=== PATIENT | female | born 1950 | race Caucasian/White ===

== ENCOUNTER → 2020-04-16 09:16 | Outpatient (BNVA) | payer OTHER, SELFPAY | PROVIDERS: PCP Internal Medicine; Visit Provider Hospitalist ==

== ENCOUNTER 2020-05-04 15:22 | Outpatient (REF) | payer OTHER, SELFPAY ==
[2020-05-04 15:57] LABS: MANUAL DIFF FLAG NO
[2020-05-04 16:04] LABS: Basophils Absolute Auto 0.1 X10*3/uL (0.0-0.2); Basophils Percent Auto 0.9 % (0-2); Eosinophils Absolute Auto 0.1 X10*3/uL (0.0-0.4); Eosinophils Percent Auto 1.6 % (0-4); Hemoglobin 14.1 g/dl (12.0-16.0); Imm Gran Abs Auto 0.02 X10*3/uL (0.00-0.03); Imm Gran Pct Auto 0.3 % (0.0-0.4); Lymphocytes Absolute Auto 1.7 X10*3/uL (1.2-4.9); Lymphocytes Percent Auto 29.5 % (20-40); Mean Corpuscular HGB Conc 32.8 g/dl (31.0-35.0); Mean Corpuscular Hemoglobin 29.9 pg (27.0-33.0); Mean Corpuscular Volume 91.1 fL (80-98); Mean Platelet Volume 9.4 fL (9.4-12.3); Monocytes Absolute Auto 0.4 X10*3/uL (0.1-1.2); Monocytes Percent Auto 7.1 % (2-11); Neutrophils Absolute Auto 3.5 X10*3/uL (2.0-8.3); Neutrophils Percent Auto 60.6 % (45-73); Platelet Count 266 X10*3/uL (160-400); Red Blood Count 4.72 X10*6/uL (4.20-5.50); White Blood Count 5.8 X10*3/uL (4.8-10.8)
[2020-05-04 16:19] LABS: Anion Gap 11 (12-20); Blood Urea Nitrogen 13 mg/dL (9-16); Calcium 9.4 mg/dL (8.4-10.2); Carbon Dioxide 31 mmol/L (22-29); Chloride 105 mmol/L (96-108); Estimated Glomerular Filt Rate > 60; Glucose Random 94 mg/dL (60-115); Potassium 4.5 mmol/L (3.3-5.1); Sodium 142 mmol/L (135-145)
[2020-05-04 16:30] LABS: D Dimer < 200 NG/ML
[2020-05-04 16:54] LABS: Erythrocyte Sedimentation Rate 7 MM/HR (0-20)
[2020-05-09 11:21] LABS: Angiotensin Converting Enzyme 40 U/L (9-67)
== END 2020-05-04 15:23 | disposition home or self-care (01) ==
LOC: HO.RESP 15:22
PROVIDERS: PCP Internal Medicine; Visit Provider Hospitalist
DX: D86.9 Sarcoidosis, unspecified (principal); R06.00 Dyspnea, unspecified; R91.8 Other nonspecific abnormal finding of lung field; I27.20 Pulmonary hypertension, unspecified; R00.0 Tachycardia, unspecified
CPT/HCPCS: 36415; 80048; 82164; 85025; 85379; 85652

== ENCOUNTER → 2020-06-21 15:06 | Outpatient (REF) | payer OTHER, SELFPAY ==
--- NOTE | ~2020-06-21 | CT_ITS ---
EXAMINATION: CT CHEST WITHOUT CONTRAST CLINICAL INFORMATION: Abnormal findings of lungs. COMPARISON: None TECHNIQUE: Multidetector volumetric CT imaging of the chest was done. Axial MIP volume rendering provided. Sagittal and coronal reformatted images were obtained. This CT examination was performed using dose optimization techniques as appropriate, variously including the following: *Automated exposure control *Adjustment of mA and/or kV according to patient size (this includes techniques or standardized protocols for targeted exams where dose is matched to indication/reason for exam; i.e. 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 LUNGS: The lungs are well inflated with bilateral apical parenchymal scarring and apical pleural thickening. The right right upper lobe parenchymal thickening appears spiculated. It measures 3.1 x 0.7 cm and has radiating fibers to the adjacent pleura. The left apical parenchymal thickening extends to the left lateral pleura. There are a few ill-defined patchy densities seen in the right upper lobe. Focal right upper major fissure thickening is seen measuring 0.9 x 0.3 cm on axial image 196/7, there is a 4 mm calcified nodule right upper lobe axial image 257/7, 2 mm partially calcified nodule in left upper lobe axial image 309/7, 5 mm nodule in the lingula with mild retraction of left major fissure axial image 306/7, 2 mm nodule right lower lobe axial image 282/7, two 1 mm punctate calcifications adjacent to the major fissure image 275/7, 2 mm nodule right middle lobe axial image 336/7. Tiny calcified nodules are seen in the lingula. There is dense band-like atelectasis in the lingula and right lower lobe. MEDIASTINUM: There is a 1 cm pretracheal lymph node. The heart size is normal. There is atherosclerotic calcification of thoracic aorta without aneurysmal dilatation. No pericardial effusion seen. Central trachea and the bronchi are widely patent. PLEURA: There is no pleural effusion. No pleural mass or thickening. AXILLA: No lymphadenopathy. UPPER ABDOMEN: Visualized liver, spleen, pancreas, and bilateral adrenal glands are unremarkable. OSSEOUS STRUCTURES: No lytic or sclerotic process seen. CT/CT chest wo con IMPRESSION: There are no previous CT or chest x-ray available for comparison. Thick bilateral apical scarring, greater on the right than left. The right apical scarring appears spiculated extending to the pleural surface in all directions. In addition, there are small scattered calcified and noncalcified pulmonary nodules. Recommend follow-up in 3-6 months to establish stability. There is no acute pneumonic consolidation. No abnormal mediastinal lymph nodes.
--- NOTE | 2020-06-21 15:09 | CA_ITS ---
Transthoracic Echocardiogram Patient (Last, First, Middle): Jocelyne Leija, Gender: Female Date of : 1950 Age: 70 Procedure Date: 06/21/2020 Procedure Type: Transthoracic Echocardiogram Location: OP Height: 167.64 cm Weight: 63.5 kg BSA: 1.72 m2 Heart Rate: bpm BP: 130 / 78 mmHg Inspector Salvage: Referring MD: Diego Remy MD Spraying Machine Operator: Cosme Vyas MD Symptoms: I27.20 - Pulmonary hypertension, unspecified Study Quality: Technically Difficult ECG Rhythm: Sinus Conclusions: - 1. Normal LV systolic function with impaired relaxation filling pattern 2. Mild mitral regurgitation 3. Normal RV systolic pressure 4. No pericardial effusion Findings Left Ventricle Normal left ventricular size, thickness, and systolic function. The visually estimated ejection fraction is between 60-65%. Regional wall motion abnormalities can not be excluded due to suboptimal endocardial definition. Spectral Doppler is indicative of an impaired relaxation filling pattern. E/E prime ratio is <8, consistent with normal filling pressures. Right Ventricle The right ventricle was not well visualized. There is normal right ventricular systolic function. Atria The left atrium was not well visualized. Interatrial shunt cannot be excluded. The right atrium was not well visualized. Aortic Valve The aortic valve structure and function is likely normal. There is no aortic valve stenosis. There is no aortic valve regurgitation. Mitral Valve Likely normal mitral valve structure and function. There is mild mitral valve regurgitation. There is no mitral valve stenosis. Pulmonic Valve The pulmonic valve was not well visualized. Tricuspid Valve The tricuspid valve was not well visualized. There is trace tricuspid valve regurgitation. The right ventricular systolic pressure is normal. There is no evidence of pulmonary hypertension. Great Vessels All visible segments of the aorta are normal in size. The pulmonary artery was not well visualized. Venous The inferior vena cava is normal in size and collapses greater than 50% with inspiration. Pericardium/Pleural There is no evidence of pericardial effusion. Prior Study Comparison No prior study available for comparison. Measurements 2D Linear Measurements IVSd: 0.95 0.6-0.9/0.6-1.0 cm LVIDd: 4.10 3.9-5.3/4.2-5.9 cm LVIDd Index: 2.38 2.4-3.2/2.2-3.1 cm/m2 LVIDs: 2.56 2.0-3.6 cm LVPWd: 0.93 0.7-1.1 cm Ao Root: 2.80 2.1-3.5 cm LA Diam: 3.00 2.7-3.8/3.0-4.0 cm LAIDs Index: 1.74 1.5-2.3 cm/m2 LV Mass: 151.28 67-162/88-224 g LV Mass Index: 87.95 43-95/49-115 g/m2 LVOT Diam: 2.00 3.0+(-)1.3 cm Mitral Valve MV Pk E: 0.67 MV PK A: 0.97 MV Decel Time: 140.00 E/A: 0.70 E'Lateral: 7.06 E'Medial: 5.61 E/E' Med: 12.00 E/E' Lat: 9.50 PHT: 41.00 MVA PHT: 5.37 Decel [place]: 4.82 Aortic Valve AoV Pk Marcio: 0.93 AoV Mn Marcio: 0.55 AoV VTI: 0.21 AoV Pk Grad: 3.00 Aov Mn Grad: 2.00 TOMY Cont.VTI: 2.57 LVOT LVOT Pk Marcio: 0.81 LVOT Mn Marcio: 0.56 LVOT VTI: 0.17 LVOT Pk Grad: 3.00 LVOT Mn Grad: 1.00 LVOT Diam: 2.00 LVOT Area: 3.14 Diastolic Function MV Pk E: 0.67 MV Pk A: 0.97 E/A: 0.70 E'Medial: 5.61 E/E' Med: 12.00 E' Laterial: 7.06 E/E' Lat: 9.50 Tricuspid Valve TR Pk Marcio: 2.27 TR Pk Grad: 21.00 RA Press: 3.00 RVSP: 24.00 Great Vessels Aorta Ao Root-2D: 2.80 2.0-3.7 cm Ao Asc: 2.80 2.1-3.4 cm Pulmonary Valve PV Pk Marcio: 0.90 Peak PV Grad: 3.00 Updated in Other Vendor System with Status of Final Cosme Vyas MD electronically signed on 06/21/2020 4:17:45 PM with status of Final
== END ==
LOC: HO.CARD 15:06
PROVIDERS: PCP Internal Medicine; Visit Provider Hospitalist
DX: R91.8 Other nonspecific abnormal finding of lung field (principal); R06.00 Dyspnea, unspecified; I27.20 Pulmonary hypertension, unspecified; R00.0 Tachycardia, unspecified; D86.9 Sarcoidosis, unspecified
CPT/HCPCS: 71250; 93306

== ENCOUNTER → 2020-06-24 10:39 | Outpatient (BNVA) | payer OTHER, SELFPAY | PROVIDERS: PCP Internal Medicine; Visit Provider Hospitalist | DX: D86.9 Sarcoidosis, unspecified (principal); R91.8 Other nonspecific abnormal finding of lung field; R06.00 Dyspnea, unspecified; R00.0 Tachycardia, unspecified; J44.9 Chronic obstructive pulmonary disease, unspecified ==

== ENCOUNTER → 2021-02-01 15:32 | Outpatient (BNVA) | payer MEDICARE, SELFPAY | PROVIDERS: PCP Internal Medicine; Visit Provider Hospitalist | DX: D86.9 Sarcoidosis, unspecified (principal); I51.89 Other ill-defined heart diseases; R00.0 Tachycardia, unspecified; R06.00 Dyspnea, unspecified; R91.8 Other nonspecific abnormal finding of lung field; J44.9 Chronic obstructive pulmonary disease, unspecified | CPT/HCPCS: 99212 ==

== ENCOUNTER 2021-06-09 16:20 | Outpatient (REF) | payer MEDICARE, SELFPAY ==
--- NOTE | ~2021-06-09 | CT_ITS ---
EXAMINATION: CT CHEST WITHOUT CONTRAST CLINICAL INFORMATION: Other nonspecific abnormal finding of lung field COMPARISON: Previous chest CT most recent May 2020 TECHNIQUE: Multidetector volumetric CT imaging of the chest was done. Axial MIP volume rendering provided. Sagittal and coronal reformatted images were obtained. This CT examination was performed using dose optimization techniques as appropriate, variously including the following: *Automated exposure control *Adjustment of mA and/or kV according to patient size (this includes techniques or standardized protocols for targeted exams where dose is matched to indication/reason for exam; i.e. 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 There is volume loss to the right upper lobe. There are parenchymal opacities and traction bronchiectasis seen in both upper lobes, right greater than left, that are stable. There are smaller bilateral pulmonary nodules that are stable. There is focal atelectasis and bronchiectasis and some consolidation in the inferior segment of the lingula that is stable. MEDIASTINUM: There is a low-attenuation lesion in the right superior mediastinum that measures 1.2 x 2.8 cm in transverse and AP dimension and appears stable. May represent a cyst or necrotic lymph node. There are small calcified and noncalcified hilar and mediastinal lymph nodes. The heart does not appear enlarged. There is no pericardial effusion. The thoracic aorta is normal in caliber. PLEURA: There is no pleural effusion. No pleural mass or thickening. AXILLA: No lymphadenopathy. UPPER ABDOMEN: There is abnormal rotation of the left kidney with anterior orientation of the renal pelvis. OSSEOUS STRUCTURES: There are degenerative changes of the spine. There is a soft tissue fatty lesion in the right shoulder and adjacent bony remodeling of the right clavicle that appears unchanged from previous exam. There is a small 8 mm sclerotic lesion in the T8 vertebral body that is stable. CT/CT chest wo con IMPRESSION: Bilateral upper lobe pleural and parenchymal scarring and bilateral nodular opacities stable from May 2020 exam. Stable calcified and noncalcified mediastinal and hilar lymph nodes. Stable question 1.2 x 2.8 cm necrotic lymph node or cyst in the right superior mediastinum. Stable fatty lesion in the right shoulder and adjacent bony remodeling of the right scapula. Fleischner guidelines were followed.
== END 2021-06-09 16:21 | disposition home or self-care (01) ==
LOC: HO.CT 16:20
PROVIDERS: Visit Provider Hospitalist
DX: R91.8 Other nonspecific abnormal finding of lung field (principal)
CPT/HCPCS: 71250

== ENCOUNTER → 2021-08-01 15:37 | Outpatient (BNVA) | payer MEDICARE, SELFPAY | PROVIDERS: PCP Internal Medicine; Visit Provider Hospitalist | DX: R91.8 Other nonspecific abnormal finding of lung field (principal); J44.9 Chronic obstructive pulmonary disease, unspecified; I51.89 Other ill-defined heart diseases; R00.0 Tachycardia, unspecified; R06.00 Dyspnea, unspecified; D86.9 Sarcoidosis, unspecified | CPT/HCPCS: 99212 ==

== ENCOUNTER 2022-08-08 13:01 | Outpatient (REF) | payer MEDICARE, SELFPAY ==
--- NOTE | ~2022-08-08 | CT_ITS ---
EXAMINATION: CT CHEST WITHOUT CONTRAST CLINICAL INFORMATION: Pulmonary nodule COMPARISON: Previous chest CT scans from 2020 and 2021 TECHNIQUE: Multidetector volumetric CT imaging of the chest was done. Axial MIP volume rendering provided. Sagittal and coronal reformatted images were obtained. This CT examination was performed using dose optimization techniques as appropriate, variously including the following: *Automated exposure control *Adjustment of mA and/or kV according to patient size (this includes techniques or standardized protocols for targeted exams where dose is matched to indication/reason for exam; i.e. extremities or head) *Use of iterative reconstruction technique DLP: 108 mGy-cm FINDINGS: LUNGS: There is biapical pleural and parenchymal scarring. Nodular opacities in the bilateral upper lobes and associated bronchiectasis do not appear appreciably changed from previous exams. There is bilateral upper lobe volume loss, right greater than left. There are clustered calcifications in the superior segment of the right lower lobe that appear unchanged. There is an adjacent area of increased groundglass attenuation for example axial image 212 series 5 that is stable. There is a small peripheral or subpleural left lower lobe nodule adjacent to the fissure measuring 4 mm axial image 171 series 5 that is stable. There is focal atelectasis or consolidation in the insula that is stable.. No endobronchial or endotracheal lesion.. MEDIASTINUM: Low-attenuation lesion in the right paratracheal superior mediastinum measures 2.4 x 3.1 cm and is increasing compared to previous exam for example measuring 1.2 x 2.8 cm in 202. This may represent a cyst or necrotic lymph node. There are other mediastinal and bilateral hilar lymph nodes some of which are partially calcified. Largest lymph nodes are a upper normal-size precarinal lymph node measuring 9 mm in short axis and slightly enlarged subcarinal partially calcified lymph node measuring 1.4 cm in short axis. These do not appear appreciably changed. Normal heart size. No pericardial effusion. CORONARY ARTERY CALCIFICATION: None visualized on this study. PLEURA: There is no pleural effusion. No pleural mass or thickening. AXILLA: No lymphadenopathy. UPPER ABDOMEN: Abnormal rotation of the left kidney with anterior orientation of the renal pelvis. The left lobe of the liver is small. This is similar to previous exam. OSSEOUS STRUCTURES: Fatty lesion in the right scapula and adjacent soft tissues appears stable. Small sclerotic lesion in the T8 vertebral body is stable. Degenerative changes of the spine. CT/CT chest wo IV con IMPRESSION: Stable bilateral upper lobe nodular opacities and focal scarring and bronchiectasis. Other small pulmonary nodules are stable. Interval increase in low-attenuation lesion in the right. Tracheal region. This may represent a cyst or necrotic lymph node. Otherwise bilateral mediastinal and hilar lymph nodes some of which are partially calcified are stable. Fleischner guidelines were followed.
== END 2022-08-08 13:02 | disposition home or self-care (01) ==
LOC: HO.CT 13:01
PROVIDERS: Visit Provider Hospitalist
DX: R91.8 Other nonspecific abnormal finding of lung field (principal)
CPT/HCPCS: 71250

== ENCOUNTER → 2022-08-09 09:48 | Outpatient (BNVA) | payer MEDICARE, SELFPAY | PROVIDERS: PCP Nurse Practitioner Primary Care; Visit Provider Hospitalist | DX: D86.9 Sarcoidosis, unspecified (principal); J44.9 Chronic obstructive pulmonary disease, unspecified; R91.8 Other nonspecific abnormal finding of lung field; R06.00 Dyspnea, unspecified; I51.89 Other ill-defined heart diseases | CPT/HCPCS: 99212 ==

== ENCOUNTER 2022-10-27 07:36 | Outpatient (REF) | payer MEDICARE, SELFPAY ==
--- NOTE | 2022-10-27 08:18 | PFT_ITS ---
FLOWS: 1. FEV1 105% of predicted at 2.59 L. 2. FVC 96% of predicted at 3.11 L. 3. FEV1 to FVC ratio of 0.83. 4. No bronchodilator response. LUNG VOLUMES: 1. Total lung capacity 84% of predicted at 4.50 L. 2. Residual volume 57% of predicted at 1.32 L. 3. Slow vital capacity 104% of predicted at 3.18 L. 4. Expiratory reserve volume 91% of predicted at 0.71 L. 5. Diffusion capacity is mildly decreased. IMPRESSION: No obstructive or restrictive ventilatory defect. No bronchodilator response. Isolated diffusion capacity defect suggest emphysema. Clinical correlation is advised. Trey Ramirez MD AP/MODL / [id number]
== END 2022-10-27 07:37 | disposition home or self-care (01) ==
LOC: HO.RESP 07:36
PROVIDERS: PCP Nurse Practitioner Primary Care; Visit Provider Hospitalist
DX: R06.00 Dyspnea, unspecified (principal)
CPT/HCPCS: 94010; 94727; 94729

== ENCOUNTER → 2022-10-27 08:18 | Outpatient (BNV) | payer MEDICARE, SELFPAY | PROVIDERS: PCP Nurse Practitioner Primary Care; Visit Provider Internal Medicine Pulmonary Disease | DX: D86.9 Sarcoidosis, unspecified (principal); R06.09 Other forms of dyspnea | CPT/HCPCS: 94060; 94727; 94729 ==

== ENCOUNTER 2023-01-26 14:12 | Outpatient (AMB) | payer MEDICARE, SELFPAY ==
[2023-01-26 14:13] VITALS: BP 130/68; PULSE 100; O2SAT 98
--- NOTE | 2023-01-26 14:13 | A.OFFVIS_ITS ---
Intake Vital Signs 01/26/23 14:13 Weight 145 lb 8.081 oz BP 130/68 Blood Pressure Location Rt brachial Position Sitting Pulse 100 Pulse Source Pulse Oximeter Pulse Oximetry (%) 98 Oxygen Delivery Method Room Air Intake Visit Reasons: dyspnea Allergies No Known Allergies Allergy (Verified 01/26/23 14:17) Medication List - Last Reconciled 01/26/23 by Asiya Bruno LPN albuterol sulfate 90 mcg/actuation 2 inhalations inhalation Q6H PRN 30 days budesonide-formoterol 160-4.5 mcg/actuation (Symbicort) 2 puffs inhalation BID 30 days levothyroxine 100 mcg PO DAILY metoprolol succinate ER 25 mg PO DAILY HPI HPI Comments History of Present Illness Details Patient is a 72 y/o woman with a history of sarcoidosis which is of biopsy-proven. She has been doing very well. Back in December 2017 she was exposed to significant out side exposures including grass clippings and believes that she was having worsening cough and shortness of breath. At that point was unclear if she had a reactivation of her sarcoidosis. His sarcoid level was normal. She did have a CT scan of the chest back in April 2017 demonstrating stable parenchymal changes with nodular densities and lymphadenopathy which have been stable. Granulomas which have been stable. She has not had to use her rescue inhaler or inhaled cortical steroids up to this point. She feels well without any significant cough or shortness of breath. We did review her last CT scan at this point the patient should get a repeat CT scan in the future needs to make sure that she has her she iced check for uveitis and also her blood work as breast to have make sure that he with kidney function and calcium levels are within normal limits. 05/13/2019 We need to repeat her Power level. Back in February of 2017 was slightly elevated. This was suggest sarcoid activity. Her CT scan however was relatively stable. She did have some slight increase in the nodular densities in the right upper lung zone. Otherwise no significant lymphadenopathy. 04/16/2020 the patient is here for pulmonary follow-up visit. Overall she is doing well. She has been developing some shortness of breath with activity. [id number] severity. Also having some nonproductive cough at times. We talked about considering maintenance inhaler to see if provides some relief of her symptoms. Her last CT scan of the chest was back in April 2019 demonstrating stable pulmonary nodules consistent with her sarcoidosis. Otherwise the patient is without any other complaints. 05/04/2020 the patient is here for pulmonary follow-up visit. Since we last spoke the patient continues to have shortness of breath. Moderate severity. She did try the Trelegy inhaler without any significant improvement actually caused her to have some tremulousness. Therefore she stopped it after several days. She did not see any improvement from a respiratory status. She denies any chest pains. She has been complaining of calf discomfort. In the office we did do a 6 minutes walk test and pulse ox went down to about 96% from 98% however, her heart rate increased up to 132. She had a Jose D score of 5/10. With her calf discomfort in her shortness of breath and tachycardia would not be unreasonable to check a D-dimer. Will also check her inflammatory markers on her Power level. The patient also has pulmonary nodules and therefore we should have a repeat CT scan of the chest to assess the pulmonary nodules to compared to her last 1 from April of 2019. Specially with her ongoing symptoms. In addition to that with the significant tachycardia an echocardiogram would also be reasonable. Specially with sarcoid history. 06/24/2020 The patient is here for a pulmonary visit. She is still complai shania of dyspnea on exertion. Her resp iratory therapy has been maximized while on the Trelegy inhaler. She did undergo a CT chest deomonstrating some sarcoid related airspace disease primarily in the upper lung zones. Her DDimer was negative which was reassuring. She did undergo an ECHO demonstrating impaired relaxation which is likely contributing to her dyspnea and tachicardia. At this point we will refer her to Cardiology to further assess. At this point I do not feel strongly that we need to evaluate for cardiac sarcoid, but should be in the differential. 02/01/2021 the patient is here for a pulmonary follow-up visit. The patient overall has been doing better. Still has some dyspnea on exertion mild in severity. She start the Trelegy she does not want to take additional medications at this time. She does have a rescue inhaler she can use as needed. 08/01/2021 the patient is here for a pulmonary follow-up visit. She continues to have some dyspnea on exertion. Mild in severity. Also recently she did undergo a cardiac evaluation for palpitations. She had an echocardiogram which is reassuring. She was started on metoprolol by her primary care doctor. No evidence of any further palpitations noted. Nose episodes of syncope or evidence of heart block. Explained to the patient that for cardiac sarcoid that will be more typical presentation. It is also reassuring that echocardiogram did not demonstrate any wall motion abnormalities. However, she understands that the best way to assess for cardiac sarcoid would be with a MRI of the heart or a cardiac PET scan. Therefore, will continue to monitor her symptoms. If they worsen then will be reasonable to further evaluate this. At this time that she did have a CT scan of the chest and is reassuring that her interstitial lung disease related to the sarcoidosis has not significantly changed. Will follow-up with a CT scan in a year's time at this time. 08/09/2022 the patient is here for pulmonary follow-up visit. She does complaint of increasing dyspnea on exertion. Even going up a Flight of stairs she needs to stop and rest. She is to be progressively getting worse. She was seen by Cardiology [place] she was started on metoprolol. Seems to be making the heart rate issue better. We did review her CT scan of the chest and does not appear to have any significant Changes from last year's. However, has not been officially read we have to wait for that report to make sure. will have the patient start Symbicort 1 puff a day to make sure does not interact with her cardiac issues. I am hopeful that this could help with his respiratory symptoms. In the meantime she will return in 3-4 months with PFTs to further evaluate her respiratory capacity. 01/26/2023 the patient is here for a pulmonary follow-up visit. Overall she is doing well. She has been using the Symbicort. She also has a rescue inhaler. She tends to use more the rescue inhaler. I did explain to her the Symbicort will work better for her. Denies any short significant shortness of breath and at rest. She does have some dyspnea on exertion mild in severity. Otherwise no other complaints. The patient did have pulmonary the here w right side of mediastinum adjacentn studies that we personally reviewed. No obstructive nor restrictive ventilatory defects. She does have mild diff usion impairment. Otherwise no significant findings. Her CT scan of the chest was last done back in July 2022 demonstrating stability of disease although she had 1 area on the right side of the trachea where there is a non specific opacity. Overall the patient is doing well will follow-up in 6 months if the patient develops any worsening symptoms prior to this she will call for an earlier assessment. [facility] Medical History (Updated 06/24/20 @ 11:09 by Diego Remy MD) Diastolic dysfunction Tachycardia Dyspnea Pulmonary nodules Sarcoidosis Asthma-COPD overlap syndrome Social History (Updated 02/01/21 @ 15:45 by [place]) Patient Tobacco Use Status: Former Tobacco user Tobacco use type: Cigarette Years Smoked: 15 years Review of Systems Const Denies night sweats ENT Denies change in voice, Denies lip swelling, Denies mouth pain, Reports nasal congestion, Reports nasal discharge and Denies tongue swelling Card Denies chest pain and Reports dyspnea on exertion Resp Reports cough and Reports dyspnea on exertion GI Denies abdominal pain Musc Denies no additional complaints Neuro Denies Neuro-related abnormal movements Psych Denies no additional complaints Bruno/Lymph Denies easy bleeding and Denies lymphadenopathy Aller/Immun Denies lip swelling and Denies tongue swelling Physical Exam Vital Signs: Last Vital Signs Pulse 100 01/26/23 14:13 BP 130/68 01/26/23 14:13 Pulse Ox 98 01/26/23 14:13 Oxygen Delivery Method Room Air 01/26/23 14:13 Const General: alert Neck Neck: Yes full ROM Chest Chest palpation & inspection: normal inspection of the chest Resp Effort & Inspection: normal respiratory effort Auscultation: diminished lung sounds Cardio Rate: regular rate Rhythm: regular rhythm Heart sounds: S1 normal heart sound present and S2 normal heart sound present GI Palpation (GI): Soft to palpation and nontender Auscultation: normal bowel sounds Skin General skin exam: rashes and/or lesions noted Assessment & Plan Assessment & Plan (1) Diastolic dysfunction: Code(s): I51.89 - Other ill-defined heart diseases (2) Dyspnea: Code(s): R06.00 - Dyspnea, unspecified Qualifiers: Dyspnea type: dyspnea on exertion Qualified Code(s): R06.00 - Dyspnea, unspecified (3) Pulmonary nodules: Code(s): R91.8 - Other nonspecific abnormal finding of lung field (4) Sarcoidosis: Code(s): D86.9 - Sarcoidosis, unspecified (5) Asthma-COPD overlap syndrome: Code(s): J44.9 - Chronic obstructive pulmonary disease, unspecified Plan short-acting beta agonist as needed conitnue Symbicort , monitor HR repeat CT chest 07/2023 F/U 3-4 months Medications: Refilled budesonide-formoterol 160-4.5 mcg/actuation (Symbicort) 2 puffs inhalation BID 30 days 10.2 grams 11RF J44.9 - Chronic obstructive pulmonary disease, unspecified Coding Level of Care Code Est Pt Level 4 (33948) Diagnoses Diastolic dysfunction I51.89 Dyspnea on exertion R06.00 Dyspnea type: dyspnea on exertion Pulmonary nodules R91.8 Sarcoidosis D86.9 Asthma-COPD overlap syndrome J44.9 Time Spent (min) 17
== END 2023-01-26 14:36 | disposition home or self-care (01) ==
PROVIDERS: PCP Nurse Practitioner Primary Care; Visit Provider Hospitalist
DX: I51.89 Other ill-defined heart diseases (principal); R06.00 Dyspnea, unspecified; R91.8 Other nonspecific abnormal finding of lung field; D86.9 Sarcoidosis, unspecified; J44.9 Chronic obstructive pulmonary disease, unspecified
CPT/HCPCS: 99214

== ENCOUNTER → 2023-01-26 14:12 | Outpatient (BNVA) | payer MEDICARE, SELFPAY | PROVIDERS: PCP Nurse Practitioner Primary Care; Visit Provider Hospitalist | DX: I51.89 Other ill-defined heart diseases (principal); J44.9 Chronic obstructive pulmonary disease, unspecified; R06.00 Dyspnea, unspecified; R91.8 Other nonspecific abnormal finding of lung field; D86.9 Sarcoidosis, unspecified | CPT/HCPCS: 99212 ==

== ENCOUNTER 2023-08-02 14:32 | Outpatient (AMB) | payer MEDICARE, SELFPAY ==
[2023-08-02 14:38] VITALS: PULSE 89; O2SAT 96; BMI 22.6
--- NOTE | 2023-08-02 14:38 | A.OFFVIS_ITS ---
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 She has been doing very well. Back in December 2017 she was exposed to significant out side exposures including grass clippings and believes that she was having worsening cough and shortness of breath. At that point was unclear if she had a reactivation of her sarcoidosis. His sarcoid level was normal. She did have a CT scan of the chest back in April 2017 demonstrating stable parenchymal changes with nodular densities and lymphadenopathy which have been stable. Granulomas which have been stable. She has not had to use her rescue inhaler or inhaled cortical steroids up to this point. She feels well without any significant cough or shortness of breath. We did review her last CT scan at this point the patient should get a repeat CT scan in the future needs to make sure that she has her she iced check for uveitis and also her blood work as breast to have make sure that he with kidney function and calcium levels are within normal limits. 08/09/2022 the patient is here for pulmonary follow-up visit. She does complaint of increasing dyspnea on exertion. Even going up a Flight of stairs she needs to stop and rest. She is to be progressively getting worse. She was seen by Cardiology [facility] she was started on metoprolol. Seems to be making the heart rate issue better. We did review her CT scan of the chest and does not appear to have any significant Changes from last year's. However, has not been officially read we have to wait for that report to make sure. will have the patient start Symbicort 1 puff a day to make sure does not interact with her cardiac issues. I am hopeful that this could help with his respiratory symptoms. In the meantime she will return in 3-4 months with PFTs to further evaluate her respiratory capacity. 01/26/2023 the patient is here for a pulmonary follow-up visit. Overall she is doing well. She has been using the Symbicort. She also has a rescue inhaler. She tends to use more the rescue inhaler. I did explain to her the Symbicort will work better for her. Denies any short significant shortness of breath and at rest. She does have some dyspnea on exertion mild in severity. Otherwise no other complaints. The patient did have pulmonary the here w right side of mediastinum adjacentn studies that we personally reviewed. No obstructive nor restrictive ventilatory defects. She does have mild diffusion impairment. Otherwise no significant findings. Her CT scan of the chest was last done back in July 2022 demonstrating stability of disease although she had 1 area on the right side of the trachea where there is a non specific opacity. Overall the patient is doing well will follow-up in 6 months if the patient develops any worsening symptoms prior to this she will call for an earlier assessment. 08/02/2023 the patient is here for a pulmonary follow-up visit. Overall she has doing about the same. Still having some dyspnea on exertion [id number] with activity. Explained to the patient likely multifactorial. We did go for a walking oximetry the patient did have an elevated heart rate. I did give her information about the online pulmonary rehabilitation that she can look at to start exercising more regularly. The patient also has inhalers that she can use as needed for worsening respiratory symptoms. She did have a CT scan of the chest back in 08/15/2022 which we personally reviewed demonstrating significant parenchymal disease nodular densities and lymphadenopathy. This is likely all related to the sarcoidosis. She is supposed repeat CT scan this time. In the meantime she also complains of significant daytime drowsiness. Her [place] score is elevated 12/24. She does have headaches in the morning and does have episodes of apnea. The patient will benefit from a home sleep study at this time. [facility] Medical History (Updated 08/02/23 @ 14:59 by Diego Reym MD) TAHIRA (obstructive sleep apnea) Diastolic dysfunction Tachycardia Dyspnea Pulmonary nodules Sarcoidosis Asthma-COPD overlap syndrome Social History (Updated 02/01/21 @ 15:45 by [place] [place]) Patient Tobacco Use Status: Former Tobacco user Tobacco use type: Cigarette Years Smoked: 15 years Review of Systems Const Denies night sweats ENT Denies change in voice, Denies lip swelling, Denies mouth pain, Reports nasal congestion, Reports nasal discharge and Denies tongue swelling Card Denies chest pain and Reports dyspnea on exertion Resp Reports cough and Reports dyspnea on exertion GI Denies abdominal pain Musc Denies no additional complaints Neuro Denies Neuro-related abnormal movements Psych Denies no additional complaints Bruno/Lymph Denies easy bleeding and Denies lymphadenopathy Aller/Immun Denies lip swelling and Denies tongue swelling Physical Exam Vital Signs: Last Vital Signs Pulse 89 08/02/23 14:38 Pulse Ox 96 08/02/23 14:38 Oxygen Delivery Method Room Air 08/02/23 14:38 BMI result Body Mass Index 22.6 Const General: alert Neck Neck: Yes full ROM Chest Chest palpation & inspection: normal inspection of the chest Resp Effort & Inspection: normal respiratory effort Auscultation: diminished lung sounds Cardio Rate: tachycardic Rhythm: regular rhythm Heart sounds: S1 normal heart sound present and S2 normal heart sound present GI Palpation (GI): Soft to palpation and nontender Auscultation: normal bowel sounds Skin General skin exam: rashes and/or lesions noted Assessment & Plan Assessment & Plan (1) Diastolic dysfunction: Code(s): I51.89 - Other ill-defined heart diseases Category: Medical (2) Dyspnea: Code(s): R06.00 - Dyspnea, unspecified Category: Medical Qualifiers: Dyspnea type: dyspnea on exertion Qualified Code(s): R06.00 - Dyspnea, unspecified (3) Pulmonary nodules: Code(s): R91.8 - Other nonspecific abnormal finding of lung field Category: Medical (4) Sarcoidosis: Code(s): D86.9 - Sarcoidosis, unspecified Category: Medical (5) Asthma-COPD overlap syndrome: Code(s): J44.9 - Chronic obstructive pulmonary disease, unspecified Category: Medical (6) TAHIRA (obstructive sleep apnea): Code(s): G47.33 - Obstructive sleep apnea (adult) (pediatric) Category: Medical Plan short-acting beta agonist as needed conitnue Symbicort , monitor HR repeat CT chest 07/2023 Home PSG F/U 3-4 months Orders: Orders RT home sleep study 08/02/23 G47.33 - Obstructive sleep apnea (adult) (pediatric) Coding Level of Care Code Est Pt Level 4 (48739) Diagnoses Diastolic dysfunction I51.89 Dyspnea on exertion R06.00 Dyspnea type: dyspnea on exertion Pulmonary nodules R91.8 Sarcoidosis D86.9 Asthma-COPD overlap syndrome J44.9 TAHIRA (obstructive sleep apnea) G47.33 Time Spent (min) 17
== END 2023-08-02 15:05 | disposition home or self-care (01) ==
PROVIDERS: PCP Nurse Practitioner Primary Care; Visit Provider Hospitalist
DX: I51.89 Other ill-defined heart diseases (principal); R06.00 Dyspnea, unspecified; R91.8 Other nonspecific abnormal finding of lung field; D86.9 Sarcoidosis, unspecified; J44.9 Chronic obstructive pulmonary disease, unspecified; G47.33 Obstructive sleep apnea (adult) (pediatric)
CPT/HCPCS: 99214

== ENCOUNTER → 2023-08-02 14:32 | Outpatient (BNVA) | payer MEDICARE, SELFPAY | PROVIDERS: PCP Nurse Practitioner Primary Care; Visit Provider Hospitalist | DX: J44.9 Chronic obstructive pulmonary disease, unspecified (principal); G47.33 Obstructive sleep apnea (adult) (pediatric); R06.00 Dyspnea, unspecified; R91.8 Other nonspecific abnormal finding of lung field; I51.89 Other ill-defined heart diseases; D86.9 Sarcoidosis, unspecified | CPT/HCPCS: 99212 ==

== ENCOUNTER → 2023-09-10 15:03 | Outpatient (REF) | payer MEDICARE, SELFPAY | LOC: HO.SL 15:03 | PROVIDERS: PCP Nurse Practitioner Primary Care; Visit Provider Hospitalist | DX: G47.33 Obstructive sleep apnea (adult) (pediatric) (principal) | CPT/HCPCS: 95806 ==

== ENCOUNTER → 2023-09-11 15:13 | Outpatient (BNV) | payer MEDICARE, SELFPAY | PROVIDERS: PCP Nurse Practitioner Primary Care; Visit Provider Psychiatry & Neurology Neurology | DX: G47.33 Obstructive sleep apnea (adult) (pediatric) (principal) | CPT/HCPCS: 95806 ==

== ENCOUNTER 2023-12-04 13:01 | Outpatient (AMB) | payer MEDICARE, SELFPAY ==
[2023-12-04 13:10] VITALS: BP 118/60; PULSE 87; O2SAT 97; BMI 24.7
--- NOTE | 2023-12-04 13:10 | MHC.OFFVIS ---
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 She has been doing very well. Back in December 2017 she was exposed to significant out side exposures including grass clippings and believes that she was having worsening cough and shortness of breath. At that point was unclear if she had a reactivation of her sarcoidosis. His sarcoid level was normal. She did have a CT scan of the chest back in April 2017 demonstrating stable parenchymal changes with nodular densities and lymphadenopathy which have been stable. Granulomas which have been stable. She has not had to use her rescue inhaler or inhaled cortical steroids up to this point. She feels well without any significant cough or shortness of breath. We did review her last CT scan at this point the patient should get a repeat CT scan in the future needs to make sure that she has her she iced check for uveitis and also her blood work as breast to have make sure that he with kidney function and calcium levels are within normal limits. 08/09/2022 the patient is here for pulmonary follow-up visit. She does complaint of increasing dyspnea on exertion. Even going up a Flight of stairs she needs to stop and rest. She is to be progressively getting worse. She was seen by Cardiology [facility] she was started on metoprolol. Seems to be making the heart rate issue better. We did review her CT scan of the chest and does not appear to have any significant Changes from last year's. However, has not been officially read we have to wait for that report to make sure. will have the patient start Symbicort 1 puff a day to make sure does not interact with her cardiac issues. I am hopeful that this could help with his respiratory symptoms. In the meantime she will return in 3-4 months with PFTs to further evaluate her respiratory capacity. 01/26/2023 the patient is here for a pulmonary follow-up visit. Overall she is doing well. She has been using the Symbicort. She also has a rescue inhaler. She tends to use more the rescue inhaler. I did explain to her the Symbicort will work better for her. Denies any short significant shortness of breath and at rest. She does have some dyspnea on exertion mild in severity. Otherwise no other complaints. The patient did have pulmonary the here w right side of mediastinum adjacentn studies that we personally reviewed. No obstructive nor restrictive ventilatory defects. She does have mild diffusion impairment. Otherwise no significant findings. Her CT scan of the chest was last done back in July 2022 demonstrating stability of disease although she had 1 area on the right side of the trachea where there is a non specific opacity. Overall the patient is doing well will follow-up in 6 months if the patient develops any worsening symptoms prior to this she will call for an earlier assessment. 08/02/2023 the patient is here for a pulmonary follow-up visit. Overall she has doing about the same. Still having some dyspnea on exertion [id number] with activity. Explained to the patient likely multifactorial. We did go for a walking oximetry the patient did have an elevated heart rate. I did give her information about the online pulmonary rehabilitation that she can look at to start exercising more regularly. The patient also has inhalers that she can use as needed for worsening respiratory symptoms. She did have a CT scan of the chest back in 08/15/2022 which we personally reviewed demonstrating significant parenchymal disease nodular densities and lymphadenopathy. This is likely all related to the sarcoidosis. She is supposed repeat CT scan this time. In the meantime she also complains of significant daytime drowsiness. Her [place] score is elevated 12/24. She does have headaches in the morning and does have episodes of apnea. The patient will benefit from a home sleep study at this time. 12/04/2023 the patient is here for a pulmonary follow-up visit. The patient overall has been doing okay. She continues to have significant daytime drowsiness with an [place] score of 12/24. She has significant snoring and she wakes up very tired. She does have headaches at times. The patient did have a home sleep study she months ago and she has severe sleep apnea with an AHI greater than 30. She also has hypoxia. The patient is agreeable to start CPAP at this time for her significant disease. Will set her up with a local Machine [employer]. In regards of her imaging studies she had a CT scan back in 08/15/2022. Demonstrating the ongoing pulmonary disease parenchymal disease and pulmonary nodules. Will plan to repeat the CT scan when she returns in 3-4 months to assess any progression of disease. Otherwise she continues to use her current respiratory therapy will follow-up in 3-[address] scan after she starts her CPAP. She will bring her CPAP to the next visit. [facility] Medical History (Updated 08/02/23 @ 14:59 by Diego Remy MD) TAHIRA (obstructive sleep apnea) Diastolic dysfunction Tachycardia Dyspnea Pulmonary nodules Sarcoidosis Asthma-COPD overlap syndrome Social History (Updated 02/01/21 @ 15:45 by Ariella Patino [facility]) Patient Tobacco Use Status: Former Tobacco user Tobacco use type: Cigarette Years Smoked: 15 years Review of Systems Const Reports daytime sleepiness, Reports difficulty sleeping, Reports headache(s), Denies night sweats and Reports snoring ENT Denies change in voice, Reports headache(s), Denies lip swelling, Denies mouth pain, Reports nasal congestion, Reports nasal discharge and Denies tongue swelling Card Denies chest pain and Reports dyspnea on exertion Resp Reports cough, Reports dyspnea on exertion and Reports snoring GI Denies abdominal pain Musc Denies no additional complaints Neuro Denies Neuro-related abnormal movements and Reports headache(s) Psych Denies no additional complaints Bruno/Lymph Denies easy bleeding and Denies lymphadenopathy Aller/Immun Denies lip swelling and Denies tongue swelling Physical Exam Vital Signs: Last Vital Signs Pulse 87 12/04/23 13:10 BP 118/60 12/04/23 13:10 Pulse Ox 97 12/04/23 13:10 Oxygen Delivery Method Room Air 12/04/23 13:10 BMI result Body Mass Index 24.7 Const General: alert Neck Neck: Yes full ROM Chest Chest palpation & inspection: normal inspection of the chest Resp Effort & Inspection: normal respiratory effort Auscultation: diminished lung sounds Cardio Rate: tachycardic Rhythm: regular rhythm Heart sounds: S1 normal heart sound present and S2 normal heart sound present GI Palpation (GI): Soft to palpation and nontender Auscultation: normal bowel sounds Skin General skin exam: rashes and/or lesions noted Assessment & Plan Assessment & Plan (1) Diastolic dysfunction: Code(s): I51.89 - Other ill-defined heart diseases Category: Medical (2) Dyspnea: Code(s): R06.00 - Dyspnea, unspecified Category: Medical Qualifiers: Dyspnea type: dyspnea on exertion Qualified Code(s): R06.00 - Dyspnea, unspecified (3) Pulmonary nodules: Code(s): R91.8 - Other nonspecific abnormal finding of lung field Category: Medical (4) Sarcoidosis: Code(s): D86.9 - Sarcoidosis, unspecified Category: Medical (5) Asthma-COPD overlap syndrome: Code(s): J44.9 - Chronic obstructive pulmonary disease, unspecified Category: Medical (6) TAHIRA (obstructive sleep apnea): Code(s): G47.33 - Obstructive sleep apnea (adult) (pediatric) Category: Medical Plan severe TAHIRA, needs to start APAP now short-acting beta agonist as needed conitnue Symbicort , monitor HR repeat CT chest 3 months F/U 3-[address]: [address] chest wo IV con 3 Months R91.8 - Other nonspecific abnormal finding of lung field Coding Level of Care Code Est Pt Level 4 (84095) Diagnoses Diastolic dysfunction I51.89 Dyspnea on exertion R06.00 Dyspnea type: dyspnea on exertion Pulmonary nodules R91.8 Sarcoidosis D86.9 Asthma-COPD overlap syndrome J44.9 TAHIRA (obstructive sleep apnea) G47.33 Time Spent (min) 17
== END 2023-12-04 13:31 | disposition home or self-care (01) ==
PROVIDERS: PCP Nurse Practitioner Primary Care; Visit Provider Hospitalist
DX: I51.89 Other ill-defined heart diseases (principal); R06.00 Dyspnea, unspecified; R91.8 Other nonspecific abnormal finding of lung field; D86.9 Sarcoidosis, unspecified; J44.9 Chronic obstructive pulmonary disease, unspecified; G47.33 Obstructive sleep apnea (adult) (pediatric)
CPT/HCPCS: 99214

== ENCOUNTER → 2023-12-04 13:01 | Outpatient (BNVA) | payer MEDICARE, SELFPAY | PROVIDERS: PCP Nurse Practitioner Primary Care; Visit Provider Hospitalist | DX: J44.9 Chronic obstructive pulmonary disease, unspecified (principal); D86.9 Sarcoidosis, unspecified; G47.33 Obstructive sleep apnea (adult) (pediatric); R06.00 Dyspnea, unspecified; R91.8 Other nonspecific abnormal finding of lung field; I51.89 Other ill-defined heart diseases | CPT/HCPCS: 99212 ==

== ENCOUNTER 2024-03-05 08:24 | Outpatient (AMB) | payer MEDICARE, SELFPAY ==
--- NOTE | 2024-03-05 08:28 | A.OFFVIS_ITS ---
Vital Signs 03/05/24 08:30 Height 5 ft 6 in Weight 157 lb 10.088 oz BMI 25.4 BP 120/76 Blood Pressure Location Rt brachial Position Sitting Pulse 94 Pulse Source Pulse Oximeter Pulse Oximetry (%) 99 Oxygen Delivery Method Room Air Intake Visit Reasons: Dyspnea Allergies No Known Allergies Allergy (Verified 03/05/24 08:33) HPI Comments Details: Patient is a 73 y/o woman with a history of sarcoidosis which is of biopsy- proven. She has been doing very well. Back in December 2017 she was exposed to significant out side exposures including grass clippings and believes that she was having worsening cough and shortness of breath. At that point was unclear if she had a reactivation of her sarcoidosis. His sarcoid level was normal. She did have a CT scan of the chest back in April 2017 demonstrating stable parenchymal changes with nodular densities and lymphadenopathy which have been stable. Granulomas which have been stable. She has not had to use her rescue inhaler or inhaled cortical steroids up to this point. She feels well without any significant cough or shortness of breath. We did review her last CT scan at this point the patient should get a repeat CT scan in the future needs to make sure that she has her she iced check for uveitis and also her blood work as breast to have make sure that he with kidney function and calcium levels are within normal limits. 08/09/2022 the patient is here for pulmonary follow-up visit. She does complaint of increasing dyspnea on exertion. Even going up a Flight of stairs she needs to stop and rest. She is to be progressively getting worse. She was seen by [facility] she was started on metoprolol. Seems to be making the heart rate issue better. We did review her CT scan of the chest and does not appear to have any significant Changes from last year's. However, has not been officially read we have to wait for that report to make sure. will have the patient start Symbicort 1 puff a day to make sure does not interact with her cardiac issues. I am hopeful that this could help with his respiratory symptoms. In the meantime she will return in 3-4 months with PFTs to further evaluate her respiratory capacity. 01/26/2023 the patient is here for a pulmonary follow-up visit. Overall she is doing well. She has been using the Symbicort. She also has a rescue inhaler. She tends to use more the rescue inhaler. I did explain to her the Symbicort will work better for her. Denies any short significant shortness of breath and at rest. She does have some dyspnea on exertion mild in severity. Otherwise no other complaints. The patient did have pulmonary the here w right side of mediastinum adjacentn studies that we personally reviewed. No obstructive nor restrictive ventilatory defects. She does have mild diffusion impairment. Otherwise no significant findings. Her CT scan of the chest was last done back in July 2022 demonstrating stability of disease although she had 1 area on the right side of the trachea where there is a non specific opacity. Overall the patient is doing well will follow-up in 6 months if the patient develops any worsening symptoms prior to this she will call for an earlier assessment. 08/02/2023 the patient is here for a pulmonary follow-up visit. Overall she has doing about the same. Still having some dyspnea on exertion [id number] with activity. Explained to the patient likely multifactorial. We did go for a walking oximetry the patient did have an elevated heart rate. I did give her information about the online pulmonary rehabilitation that she can look at to start exercising more regularly. The patient also has inhalers that she can use as needed for worsening respiratory symptoms. She did have a CT scan of the chest back in 08/15/2022 which we personally reviewed demonstrating significant parenchymal disease nodular densities and lymphadeno marisol. This is likely all related to the sarcoidosis. She is supposed repeat CT scan this time. In the meantime she also complains of significant daytime drowsiness. Her [place] score is elevated 12/24. She does have headaches in the morning and does have episodes of apnea. The patient will benefit from a home sleep study at this time. 12/04/2023 the patient is here for a pulmonary follow-up visit. The patient overall has been doing okay. She continues to have significant daytime drowsiness with an [place] score of 12/24. She has significant snoring and she wakes up very tired. She does have headaches at times. The patient did have a home sleep study she months ago and she has severe sleep apnea with an AHI greater than 30. She also has hypoxia. The patient is agreeable to start CPAP at this time for her significant disease. Will set her up with a local [employer]. In regards of her imaging studies she had a CT scan back in 08/15/2022. Demonstrating the ongoing pulmonary disease parenchymal disease and pulmonary nodules. Will plan to repeat the CT scan when she returns in 3-4 months to assess any progression of disease. Otherwise she continues to use her current respiratory therapy will follow-up in 3-[address] scan after she starts her CPAP. She will bring her CPAP to the next visit. 03/05/2024 the patient is here for pulmonary follow-up visit. Overall she is doing okay. She unfortunately got diagnosed breast cancer. She is going to have a lumpectomy soon. She does have a family history of breast cancer in the family. She is also due for CT scan of the chest. She is scheduled for tomorrow. Therefore follow-up with afterwards. She is also getting used to her CPAP. CPAP therapy continues to be affecting beneficial. She does use it for more than 4 hours a night. Her AHI still elevated at 9. I did adjust her pressures from 6-16 2 8-18. Hopefully the higher pressures will help her decrease her AHI to below 5. If she can not tolerate the higher pressure she is going to call. She is using a fullface mask. I did recommend she continue with a fullface mask based on the fact that her pressures are above average. If she has any issues she will call for further evaluation. [facility] Medical History (Updated 08/02/23 @ 14:59 by Diego Remy MD) TAHIRA (obstructive sleep apnea) Diastolic dysfunction Tachycardia Dyspnea Pulmonary nodules Sarcoidosis Asthma-COPD overlap syndrome Social History Patient Tobacco Use Status: Former Tobacco user Tobacco use type: Cigarette Years Smoked: 15 years Review of Systems Const Reports daytime sleepiness, Reports difficulty sleeping, Reports headache(s), Denies night sweats and Reports snoring ENT Denies change in voice, Reports headache(s), Denies lip swelling, Denies mouth pain, Reports nasal congestion, Reports nasal discharge and Denies tongue swelling Card Denies chest pain and Reports dyspnea on exertion Resp Reports cough, Reports dyspnea on exertion and Reports snoring GI Denies abdominal pain Musc Denies no additional complaints Skin/Breast Reports as per HPI Neuro Denies Neuro-related abnormal movements and Reports headache(s) Psych Denies no additional complaints Bruno/Lymph Denies easy bleeding and Denies lymphadenopathy Aller/Immun Denies lip swelling and Denies tongue swelling Physical Exam Vital Signs: Last Vital Signs Pulse 94 03/05/24 08:30 BP 120/76 03/05/24 08:30 Pulse Ox 99 03/05/24 08:30 Oxygen Delivery Method Room Air 03/05/24 08:30 BMI result Body Mass Index 25.4 Const General: alert Neck Neck: Yes full ROM Chest Chest palpation & inspection: normal inspection of the chest Resp Effort & Inspection: normal respiratory effort Auscultation: diminished lung sounds Cardio Rate: tachycardic Rhythm: regular rhythm Heart sounds: S1 normal heart sound present and S2 normal heart sound present GI Palpation (GI): Soft to palpation and nontender Auscultation: normal bowel sounds Skin General skin exam: rashes and/or lesions noted Assessment & Plan Assessment & Plan (1) Diastolic dysfunction: Code(s): I51.89 - Other ill-defined heart diseases Category: Medical (2) Dyspnea: Code(s): R06.00 - Dyspnea, unspecified Category: Medical Qualifiers: Dyspnea type: dyspnea on exertion Qualified Code(s): R06.00 - Dyspnea, unspecified (3) Pulmonary nodules: Code(s): R91.8 - Other nonspecific abnormal finding of lung field Category: Medical (4) Sarcoidosis: Code(s): D86.9 - Sarcoidosis, unspecified Category: Medical (5) Asthma-COPD overlap syndrome: Code(s): J44.9 - Chronic obstructive pulmonary disease, unspecified Category: Medical (6) TAHIRA (obstructive sleep apnea): Code(s): G47.33 - Obstructive sleep apnea (adult) (pediatric) Category: Medical Plan severe TAHIRA, continue APAP, increase 6-16 -> 8-18 short-acting beta agonist as needed conitnue Symbicort , monitor HR repeat CT chest scheduled for tomorrow F/U 3-4 months Coding Level of Care Code Est Pt Level 4 (86139) Complex EM visit Add On G2211 Diagnoses Diastolic dysfunction I51.89 Dyspnea on exertion R06.00 Dyspnea type: dyspnea on exertion Pulmonary nodules R91.8 Sarcoidosis D86.9 Asthma-COPD overlap syndrome J44.9 TAHIRA (obstructive sleep apnea) G47.33 Time Spent (min) 17
[2024-03-05 08:30] VITALS: BP 120/76; PULSE 94; O2SAT 99; BMI 25.4
--- OUTSIDE RECORDS SUMMARY | 2024-03-05 08:32 | XMS_ITS | Continuity of Care Document ---
Author Organization [facility] [address] [place] [address] Phone [phone] Social History Type Date Description Comments Sex Unknown Medical Devices Description No Information Available Encounters Description No Information Available Assessments Description No Information Available Plan of Treatment No Information Available Functional Status Description No Information Available Mental Status Description No Information Available Referrals Description No Information Available
== END 2024-03-05 08:52 | disposition home or self-care (01) ==
PROVIDERS: PCP Nurse Practitioner Primary Care; Visit Provider Hospitalist
DX: I51.89 Other ill-defined heart diseases (principal); R06.00 Dyspnea, unspecified; R91.8 Other nonspecific abnormal finding of lung field; D86.9 Sarcoidosis, unspecified; J44.9 Chronic obstructive pulmonary disease, unspecified; G47.33 Obstructive sleep apnea (adult) (pediatric)
CPT/HCPCS: 99214; G2211

== ENCOUNTER → 2024-03-05 08:24 | Outpatient (BNVA) | payer MEDICARE, SELFPAY | PROVIDERS: PCP Nurse Practitioner Primary Care; Visit Provider Hospitalist | DX: R06.00 Dyspnea, unspecified (principal); I51.89 Other ill-defined heart diseases; R91.8 Other nonspecific abnormal finding of lung field; D86.9 Sarcoidosis, unspecified; J44.9 Chronic obstructive pulmonary disease, unspecified; G47.33 Obstructive sleep apnea (adult) (pediatric) | CPT/HCPCS: 99212 ==

== ENCOUNTER 2024-03-06 12:44 | Outpatient (REF) | payer MEDICARE, SELFPAY ==
--- NOTE | ~2024-03-06 | CT_ITS ---
CLINICAL HISTORY: R91.8 - Other nonspecific abnormal finding of lung field CT chest without contrast Comparison: CT/REG/SR - CT CHEST WO IV CON - 08/08/22 13:10 EDT Findings: The heart size is normal. Atrophic or absent thyroid gland. 3.3 x 2.8 cm circumscribed hypodense nodular focus within the right paratracheal region, slightly increased in size since the prior study. This could represent a complex cyst or low-density lymph node. There are multiple calcified mediastinal and hilar lymph nodes. Bilateral upper lobe scarring, predominating at the lung apices, [id number], without change small focus of interstitial scarring within the lateral aspect of the right lower lobe without change. Multiple nodular foci within the bilateral lungs without change. Dominant nodules include a 9 mm left upper lobe nodule on image 17 and a 7 mm left lower lobe nodule on image 20. No new pulmonary nodule. No consolidation or pleural effusion. The visualized upper abdomen is unremarkable. The bones are intact. IMPRESSION: 1. There is a 3.3 cm complex cyst or low-density lymph node within the mediastinum with slight interval increase in size. Consider further evaluation with PET scan. 2. Multiple small pulmonary nodules without change. 3. Bilateral upper lobe scarring, [id number]-left, without change. This document has been electronically signed by: Kat Leggett MD on 03/07/2024 17:29:29
--- OUTSIDE RECORDS SUMMARY | 2024-03-06 13:55 | XMS_ITS | Continuity of Care Document ---
Author Organization [facility] [address] [place] [address] Phone [phone] Social History Type Date Description Comments Sex Unknown Medical Devices Description No Information Available Encounters Description No Information Available Assessments Description No Information Available Plan of Treatment No Information Available Functional Status Description No Information Available Mental Status Description No Information Available Referrals Description No Information Available
== END 2024-03-06 12:45 | disposition home or self-care (01) ==
LOC: HO.CT 12:44
PROVIDERS: PCP Nurse Practitioner Primary Care; Visit Provider Hospitalist
DX: R91.8 Other nonspecific abnormal finding of lung field (principal)
CPT/HCPCS: 71250

== ENCOUNTER → 2024-03-06 12:45 | Outpatient (BNV) | payer MEDICARE, SELFPAY | PROVIDERS: PCP Nurse Practitioner Primary Care; Visit Provider Radiology Diagnostic Radiology | DX: R91.8 Other nonspecific abnormal finding of lung field (principal) | CPT/HCPCS: 71250 ==

== ENCOUNTER → 2024-04-08 10:22 | Outpatient (BNVA) | payer MEDICARE, SELFPAY | PROVIDERS: PCP Nurse Practitioner Primary Care; Visit Provider Hospitalist | DX: J44.9 Chronic obstructive pulmonary disease, unspecified (principal); G47.33 Obstructive sleep apnea (adult) (pediatric); I51.89 Other ill-defined heart diseases; R06.00 Dyspnea, unspecified; R91.8 Other nonspecific abnormal finding of lung field; D86.9 Sarcoidosis, unspecified; R59.1 Generalized enlarged lymph nodes; C50.919 Malignant neoplasm of unspecified site of unspecified female breast | CPT/HCPCS: 99212 ==

== ENCOUNTER → 2024-04-08 10:43 | Outpatient (AMB) | payer MEDICARE, SELFPAY ==
[2024-04-08 10:23] VITALS: BP 132/76; PULSE 95; O2SAT 98; BMI 24.9
--- NOTE | 2024-04-08 10:23 | MHC.OFFVIS ---
Vital Signs 04/08/24 10:23 Height 5 ft 6 in Weight 154 lb 5.177 oz BMI 24.9 BP 132/76 Blood Pressure Location Rt brachial Position Sitting Pulse 95 Pulse Source Pulse Oximeter Pulse Oximetry (%) 98 Oxygen Delivery Method Room Air Intake Visit Reasons: Sleep apnea Allergies No Known Allergies Allergy (Verified 04/08/24 10:26) HPI Comments Details: Patient is a 73 y/o woman with a history of sarcoidosis which is of biopsy-proven. She has been doing very well. Back in December 2017 she was exposed to significant out side exposures including grass clippings and believes that she was having worsening cough and shortness of breath. At that point was unclear if she had a reactivation of her sarcoidosis. His sarcoid level was normal. She did have a CT scan of the chest back in April 2017 demonstrating stable parenchymal changes with nodular densities and lymphadenopathy which have been stable. Granulomas which have been stable. She has not had to use her rescue inhaler or inhaled cortical steroids up to this point. She feels well without any significant cough or shortness of breath. We did review her last CT scan at this point the patient should get a repeat CT scan in the future needs to make sure that she has her she iced check for uveitis and also her blood work as breast to have make sure that he with kidney function and calcium levels are within normal limits. 08/09/2022 the patient is here for pulmonary follow-up visit. She does complaint of increasing dyspnea on exertion. Even going up a Flight of stairs she needs to stop and rest. She is to be progressively getting worse. She was seen by [facility] she was started on metoprolol. Seems to be making the heart rate issue better. We did review her CT scan of the chest and does not appear to have any significant Changes from last year's. However, has not been officially read we have to wait for that report to make sure. will have the patient start Symbicort 1 puff a day to make sure does not interact with her cardiac issues. I am hopeful that this could help with his respiratory symptoms. In the meantime she will return in 3-4 months with PFTs to further evaluate her respiratory capacity. 01/26/2023 the patient is here for a pulmonary follow-up visit. Overall she is doing well. She has been using the Symbicort. She also has a rescue inhaler. She tends to use more the rescue inhaler. I did explain to her the Symbicort will work better for her. Denies any short significant shortness of breath and at rest. She does have some dyspnea on exertion mild in severity. Otherwise no other complaints. The patient did have pulmonary the here w right side of mediastinum adjacentn studies that we personally reviewed. No obstructive nor restrictive ventilatory defects. She does have mild diffusion impairment. Otherwise no significant findings. Her CT scan of the chest was last done back in July 2022 demonstrating stability of disease although she had 1 area on the right side of the trachea where there is a non specific opacity. Overall the patient is doing well will follow-up in 6 months if the patient develops any worsening symptoms prior to this she will call for an earlier assessment. 08/02/2023 the patient is here for a pulmonary follow-up visit. Overall she has doing about the same. Still having some dyspnea on exertion [id number] with activity. Explained to the patient likely multifactorial. We did go for a walking oximetry the patient did have an elevated heart rate. I did give her information about the online pulmonary rehabilitation that she can look at to start exercising more regularly. The patient also has inhalers that she can use as needed for worsening respiratory symptoms. She did have a CT scan of the chest back in 08/15/2022 which we personally reviewed demonstrating significant parenchymal disease nodular densities and lymphadenopathy. This is likely all related to the sarcoidosis. She is supposed repeat CT scan this time. In the meantime she also complains of significant daytime drowsiness. Her [place] score is elevated 12/24. She does have headaches in the morning and does have episodes of apnea. The patient will benefit from a home sleep study at this time. 12/04/2023 the patient is here for a pulmonary follow-up visit. The patient overall has been doing okay. She continues to have significant daytime drowsiness with an [place] score of 12/24. She has significant snoring and she wakes up very tired. She does have headaches at times. The patient did have a home sleep study she months ago and she has severe sleep apnea with an AHI greater than 30. She also has hypoxia. The patient is agreeable to start CPAP at this time for her significant disease. Will set her up with a local [employer]. In regards of her imaging studies she had a CT scan back in 08/15/2022. Demonstrating the ongoing pulmonary disease parenchymal disease and pulmonary nodules. Will plan to repeat the CT scan when she returns in 3-4 months to assess any progression of disease. Otherwise she continues to use her current respiratory therapy will follow-up in 3-[address] scan after she starts her CPAP. She will bring her CPAP to the next visit. 03/05/2024 the patient is here for pulmonary follow-up visit. Overall she is doing okay. She unfortunately got diagnosed breast cancer. She is going to have a lumpectomy soon. She does have a family history of breast cancer in the family. She is also due for CT scan of the chest. She is scheduled for tomorrow. Therefore follow-up with afterwards. She is also getting used to her CPAP. CPAP therapy continues to be affecting beneficial. She does use it for more than 4 hours a night. Her AHI still elevated at 9. I did adjust her pressures from 6-16 2 8-18. Hopefully the higher pressures will help her decrease her AHI to below 5. If she can not tolerate the higher pressure she is going to call. She is using a fullface mask. I did recommend she continue with a fullface mask based on the fact that her pressures are above average. If she has any issues she will call for further evaluation. 04/08/2024 the patient is here for a pulmonary follow-up visit. Overall she is doing well. She is tolerating CPAP. AHI continues to be little elevated but she is getting used to the high pressures. Hopefully we can increase the pressures further the coming months. In the meantime we did review her CT scan of the chest. She appears to have a interval increase in a mediastinal cystic like area. She has a PET scan pending. Will follow up with the results. In the meantime she is going to start getting radiation for breast cancer. I will give a call will have the results of the PET scan. Meantime will plan to follow-up in 3-4 months. [facility] Medical History (Updated 04/08/24 @ 20:47 by Diego Remy MD) Breast cancer TAHIRA (obstructive sleep apnea) Diastolic dysfunction Tachycardia Dyspnea Pulmonary nodules Sarcoidosis Asthma-COPD overlap syndrome Social History Patient Tobacco Use Status: Former Tobacco user Tobacco use type: Cigarette Years Smoked: 15 years Review of Systems Const Reports daytime sleepiness, Reports difficulty sleeping, Reports headache(s), Denies night sweats and Reports snoring ENT Denies change in voice, Reports headache(s), Denies lip swelling, Denies mouth pain, Reports nasal congestion, Reports nasal discharge and Denies tongue swelling Card Denies chest pain and Reports dyspnea on exertion Resp Reports cough, Reports dyspnea on exertion and Reports snoring GI Denies abdominal pain Musc Denies no additional complaints Skin/Breast Reports as per HPI Neuro Denies Neuro-related abnormal movements and Reports headache(s) Psych Denies no additional complaints Bruno/Lymph Denies easy bleeding and Denies lymphadenopathy Aller/Immun Denies lip swelling and Denies tongue swelling Physical Exam Vital Signs: Last Vital Signs Pulse 95 04/08/24 10:23 BP 132/76 04/08/24 10:23 Pulse Ox 98 04/08/24 10:23 Oxygen Delivery Method Room Air 04/08/24 10:23 BMI result Body Mass Index 24.9 Const General: alert Neck Neck: Yes full ROM Chest Chest palpation & inspection: normal inspection of the chest Resp Effort & Inspection: normal respiratory effort Auscultation: diminished lung sounds Cardio Rate: tachycardic Rhythm: regular rhythm Heart sounds: S1 normal heart sound present and S2 normal heart sound present GI Palpation (GI): Soft to palpation and nontender Auscultation: normal bowel sounds Skin General skin exam: rashes and/or lesions noted Assessment & Plan Assessment & Plan (1) Diastolic dysfunction: Code(s): I51.89 - Other ill-defined heart diseases Category: Medical (2) Dyspnea: Code(s): R06.00 - Dyspnea, unspecified Category: Medical Qualifiers: Dyspnea type: dyspnea on exertion Qualified Code(s): R06.00 - Dyspnea, unspecified (3) Pulmonary nodules: Code(s): R91.8 - Other nonspecific abnormal finding of lung field Category: Medical (4) Sarcoidosis: Code(s): D86.9 - Sarcoidosis, unspecified Category: Medical (5) Asthma-COPD overlap syndrome: Code(s): J44.9 - Chronic obstructive pulmonary disease, unspecified Category: Medical (6) TAHIRA (obstructive sleep apnea): Code(s): G47.33 - Obstructive sleep apnea (adult) (pediatric) Category: Medical (7) Breast cancer: Code(s): C50.919 - Malignant neoplasm of unspecified site of unspecified female breast Category: Medical (8) Lymphadenopathy: Code(s): R59.1 - Generalized enlarged lymph nodes Category: Medical Plan severe TAHIRA, continue APAP, increase 6-16 -> 7-18 Awaiting PEt scan short-acting beta agonist as conitnue Symbicort F/U 3-4 months Coding Level of Care Code Est Pt Level 4 (12277) Diagnoses Diastolic dysfunction I51.89 Dyspnea on exertion R06.00 Dyspnea type: dyspnea on exertion Pulmonary nodules R91.8 Sarcoidosis D86.9 Asthma-COPD overlap syndrome J44.9 TAHIRA (obstructive sleep apnea) G47.33 Breast cancer C50.919 Lymphadenopathy R59.1 Time Spent (min) 17
== END | disposition home or self-care (01) ==
PROVIDERS: PCP Nurse Practitioner Primary Care; Visit Provider Hospitalist
DX: I51.89 Other ill-defined heart diseases (principal); R06.00 Dyspnea, unspecified; R91.8 Other nonspecific abnormal finding of lung field; D86.9 Sarcoidosis, unspecified; J44.9 Chronic obstructive pulmonary disease, unspecified; G47.33 Obstructive sleep apnea (adult) (pediatric); C50.919 Malignant neoplasm of unspecified site of unspecified female breast; R59.1 Generalized enlarged lymph nodes
CPT/HCPCS: 99214

== ENCOUNTER 2024-07-03 09:57 | Outpatient (AMB) | payer MEDICARE, SELFPAY ==
--- NOTE | 2024-07-03 09:58 | A.OFFVIS_ITS ---
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 She has been doing very well. Back in December 2017 she was exposed to significant out side exposures including grass clippings and believes that she was having worsening cough and shortness of breath. At that point was unclear if she had a reactivation of her sarcoidosis. His sarcoid level was normal. She did have a CT scan of the chest back in April 2017 demonstrating stable parenchymal changes with nodular densities and lymphadenopathy which have been stable. Granulomas which have been stable. She has not had to use her rescue inhaler or inhaled cortical steroids up to this point. She feels well without any significant cough or shortness of breath. We did review her last CT scan at this point the patient should get a repeat CT scan in the future needs to make sure that she has her she iced check for uveitis and also her blood work as breast to have make sure that he with kidney function and calcium levels are within normal limits. 08/09/2022 the patient is here for pulmonary follow-up visit. She does complaint of increasing dyspnea on exertion. Even going up a Flight of stairs she needs to stop and rest. She is to be progressively getting worse. She was seen by [facility] she was started on metoprolol. Seems to be making the heart rate issue better. We did review her CT scan of the chest and does not appear to have any significant Changes from last year's. However, has not been officially read we have to wait for that report to make sure. will have the patient start Symbicort 1 puff a day to make sure does not interact with her cardiac issues. I am hopeful that this could help with his respiratory symptoms. In the meantime she will return in 3-4 months with PFTs to further evaluate her respiratory capacity. 01/26/2023 the patient is here for a pulmonary follow-up visit. Overall she is doing well. She has been using the Symbicort. She also has a rescue inhaler. She tends to use more the rescue inhaler. I did explain to her the Symbicort will work better for her. Denies any short significant shortness of breath and at rest. She does have some dyspnea on exertion mild in severity. Otherwise no other complaints. The patient did have pulmonary the here w right side of mediastinum adjacentn studies that we personally reviewed. No obstructive nor restrictive ventilatory defects. She does have mild diffusion impairment. Otherwise no significant findings. Her CT scan of the chest was last done back in July 2022 demonstrating stability of disease although she had 1 area on the right side of the trachea where there is a non specific opacity. Overall the patient is doing well will follow-up in 6 months if the patient develops any worsening symptoms prior to this she will call for an earlier assessment. 08/02/2023 the patient is here for a pulmonary follow-up visit. Overall she has doing about the same. Still having some dyspnea on exertion [id number] with activity. Explained to the patient likely multifactorial. We did go for a walking oximetry the patient did have an elevated heart rate. I did give her information about the online pulmonary rehabilitation that she can look at to start exercising more regularly. The patient also has inhalers that she can use as needed for worsening respiratory symptoms. She did have a CT scan of the chest back in 08/15/2022 which we personally reviewed demonstrating significant parenchymal disease nodular densities and lymphadenopathy. This is likely all related to the sarcoidosis. She is supposed repeat CT scan this time. In the meantime she also complains of significant daytime drowsiness. Her Chesaning score is elevated 12/24. She does have headaches in the morning and does have episodes of apnea. The patient will benefit from a home sleep study at this time. 12/04/2023 the patient is here for a pulmonary follow-up visit. The patient overall has been doing okay. She continues to have significant daytime drowsiness with an Chesaning score of 12/24. She has significant snoring and she wakes up very tired. She does have headaches at times. The patient did have a home sleep study she months ago and she has severe sleep apnea with an AHI greater than 30. She also has hypoxia. The patient is agreeable to start CPAP at this time for her significant disease. Will set her up with a local [facility]. In regards of her imaging studies she had a CT scan back in 08/15/2022. Demonstrating the ongoing pulmonary disease parenchymal disease and pulmonary nodules. Will plan to repeat the CT scan when she returns in 3-4 months to assess any progression of disease. Otherwise she continues to use her current respiratory therapy will follow-up in 3-[address] scan after she sta rts her CPAP. She will bring her CPAP to the next visit. 03/05/2024 the patient is here for pulmonary follow-up visit. Overall she is doing okay. She unfortunately got diagnosed breast cancer. She is going to have a lumpectomy soon. She does have a family history of breast cancer in the family. She is also due for CT scan of the chest. She is scheduled for tomorrow. Therefore follow-up with afterwards. She is also getting used to her CPAP. CPAP therapy continues to be affecting beneficial. She does use it for more than 4 hours a night. Her AHI still elevated at 9. I did adjust her pressures from 6-16 2 8-18. Hopefully the higher pressures will help her decrease her AHI to below 5. If she can not tolerate the higher pressure she is going to call. She is using a fullface mask. I did recommend she continue with a fullface mask based on the fact that her pressures are above average. If she has any issues she will call for further evaluation. 04/08/2024 the patient is here for a pulmonary follow-up visit. Overall she is doing well. She is tolerating CPAP. AHI continues to be little elevated but she is getting used to the high pressures. Hopefully we can increase the pressures further the coming months. In the meantime we did review her CT scan of the chest. She appears to have a interval increase in a mediastinal cystic like area. She has a PET scan pending. Will follow up with the results. In the meantime she is going to start getting radiation for breast cancer. I will give a call will have the results of the PET scan. Meantime will plan to follow-up in 3-4 months. 07/03/2024 the patient is here for pulmonary follow-up visit. Overall she is doing okay. She continues use her CPAP. She still having elevated AHI is still waking up tired. I did download the machine. The APAP seems like it is not going above a pressure of 13 cm. Is set up to go to 18 cm. She still has about 8 episodes an hour of sleep apnea. I had increase the pressures last time will go ahead and increasing again and she is going to call week or 2 to see if she is making any progress. Meantime I will also adjust the humidity. The patient did undergo a PET scan because she has the mediastinal density. The mediastinal density had a low FDG suggesting benign process. Although, this slowly has increased in size. Will go ahead and repeat a CAT scan again and if it continues to grow will go ahead and refer her to thoracic surgery or consider endobronchial ultrasound bronchoscopy with needle sampling. Also to note the patient did have slightly active hilar and mediastinal lymph nodes consistent with a history of sarcoidosis. Will follow-up in 4-6 months if she has any issues any worsening symptoms she will call. And again she will call for her CPAP if he needs additional adjustments. Also, since the pressures unlike going up consider sending her back to her [employer] company to assess the machine in case it is not working properly as the pressures are not increasing effectively. [facility] Medical History (Updated 07/03/24 @ 10:21 by Diego Remy MD) Mediastinal mass Breast cancer TAHIRA (obstructive sleep apnea) Diastolic dysfunction Tachycardia Dyspnea Pulmonary nodules Sarcoidosis Asthma-COPD overlap syndrome Social History (Updated 07/03/24 @ 10:03 by Malathi Rowan CMA) Alcohol intake: current Alcohol intake frequency: holidays/special occasions only Patient Tobacco Use Status: Former Tobacco user Tobacco use type: Cigarette Years Smoked: 15 years Review of Systems Const Denies chills, Reports daytime sleepiness, Reports difficulty sleeping, Denies fatigue, Denies fever(s), Denies weight gain and Denies weight loss ENT Denies dizziness, Denies lip swelling and Denies tongue swelling Card Denies chest pain, Denies leg edema, Denies lightheadedness, Denies palpitations, Denies dyspnea on exertion, Denies orthopnea and Denies other Resp Denies cough and Denies dyspnea on exertion GI Denies hematochezia and Denies change in stool character Musc Denies abnormal gait, Denies muscle weakness, Denies numbness, Denies radiating pain into limb and Denies tingling Skin/Breast Reports as per HPI Neuro Denies abnormal gait, Denies dizziness, Denies numbness and Denies tingling Psych Denies no additional complaints Endo Denies fatigue and Denies palpitations Bruno/Lymph Denies easy bleeding and Denies lymphadenopathy Aller/Immun Denies lip swelling and Denies tongue swelling Physical Exam Vital Signs: Last Vital Signs Pulse 90 07/03/24 09:59 BP 128/70 07/03/24 09:59 Pulse Ox 99 07/03/24 09:59 Oxygen Delivery Method Room Air 07/03/24 09:59 BMI result Body Mass Index 24.9 Const General: alert Neck Neck: Yes full ROM Chest Chest palpation & inspection: normal inspection of the chest Resp Effort & Inspection: normal respiratory effort Auscultation: diminished lung sounds Cardio Rate: regular rate Rhythm: regular rhythm Heart sounds: S1 normal heart sound present and S2 normal heart sound present GI Palpation (GI): Soft to palpation and nontender Auscultation: normal bowel sounds Skin General skin exam: rashes and/or lesions noted Results Reviewed Results Reviewed: Personally the images from the CT scan from February 2024. Also reviewed her PET scan. The mediastinal cystic like lesion did not have any significant FDG activity with an SUV max 0.9. Assessment & Plan Assessment & Plan (1) Diastolic dysfunction: Code(s): I51.89 - Other ill-defined heart diseases Category: Medical (2) Dyspnea: Code(s): R06.00 - Dyspnea, unspecified Category: Medical Qualifiers: Dyspnea type: dyspnea on exertion Qualified Code(s): R06.00 - Dyspnea, unspecified (3) Pulmonary nodules: Code(s): R91.8 - Other nonspecific abnormal finding of lung field Category: Medical (4) Sarcoidosis: Code(s): D86.9 - Sarcoidosis, unspecified Category: Medical (5) Asthma-COPD overlap syndrome: Code(s): J44.9 - Chronic obstructive pulmonary disease, unspecified Category: Medical (6) TAHIRA (obstructive sleep apnea): Code(s): G47.33 - Obstructive sleep apnea (adult) (pediatric) Category: Medical (7) Lymphadenopathy: Code(s): R59.1 - Generalized enlarged lymph nodes Category: Medical (8) Mediastinal mass: Code(s): J98.59 - Other diseases of mediastinum, not elsewhere classified Category: Medical Plan severe TAHIRA, continue APAP, increase 6-16 -> 7-18-->10-20 short-acting beta agonist as conitnue Symbicort bloodwork CT chest with IV contrast 6 months from her PET scan F/U 4 months Orders: Orders CT chest w IV con 10/27/24 J98.59 - Other diseases of mediastinum, not elsewhere classified, R59.1 - Generalized enlarged lymph nodes, R91.8 - Other nonspecific abnormal finding of lung field Basic Metabolic Panel Today J98.59 - Other diseases of mediastinum, not elsewhere classified Complete Blood Count Auto Diff Today J98.59 - Other diseases of mediastinum, not elsewhere classified Erythrocyte Sedimentation Rate Today J98.59 - Other diseases of mediastinum, not elsewhere classified Coding Level of Care Code Est Pt Level 5 (22127) Diagnoses Diastolic dysfunction I51.89 Dyspnea on exertion R06.00 Dyspnea type: dyspnea on exertion Pulmonary nodules R91.8 Sarcoidosis D86.9 Asthma-COPD overlap syndrome J44.9 TAHIRA (obstructive sleep apnea) G47.33 Lymphadenopathy R59.1 Mediastinal mass J98.59 Time Spent (min) 40
[2024-07-03 09:59] VITALS: BP 128/70; PULSE 90; O2SAT 99; BMI 24.9
--- OUTSIDE RECORDS SUMMARY | 2024-07-03 10:56 | XMS_ITS | Clinical Summary ---
Author Organization [address] Address [address] [place] [phone] Phone Care Team Providers Care Anthropology Department Chair Name Role Phone Helen Key NP Primary Care Provider [phone] Allergies No known active allergies Medications budesonide-formo teroL (SYMBICORT) 160-4.5 mcg/actuation inhaler Inhale 2 puffs by mouth 2 (two) times a day. Active albuterol 2.5 mg /3 mL (0.083 %) nebulizer solution Inhale 3 mL (2.5 mg total) by mouth. 05/09/2022 Active metoprolol succinate (TOPROL-XL) 25 mg 24 hr tablet TAKE 1 TABLET BY MOUTH EVERY DAY 90 tablet 1 01/28/2024 Active atorvastatin (LIPITOR) 10 mg tablet Take 1 Tablet by mouth daily for 360 days. 12/14/2023 Active levothyroxine (SYNTHROID, LEVOTHROID) 100 mcg tablet TAKE 1 TABLET BY MOUTH ONCE PER DAY FOR 6 DAYS PER WEEK 78 tablet 1 05/21/2024 Active Active Problems Problem Noted Date Diagnosed Date Palpitations 05/30/2024 Dysthymia 04/26/2022 Osteoporosis 04/26/2022 Asthma 06/30/2016 Hypercholesterolemia 06/30/2016 Acquired hypothyroidism 06/30/2016 Pulmonary sarcoidosis (CMS/HCC V24) 06/30/2016 Encounters Date Type Department Care Team Description 06/16/2024 Telephone Internal Medicine - [address] [place] [address] Helen Key NP DME Request ([facility] ) 05/30/2024 2:30 PM EDT Office [facility] [address] [place], [place] [address] [address] Helen Key NP Pulmonary sarcoidosis ([facility] V24) (Primary Dx); Acquired hypothyroidism; Hypercholesterolemia ; Palpitations; Moderate persistent asthma without complication 04/18/2024 9:02 AM EST - 04/18/2024 11:59 PM EST Hospital Encounter [facility] PET Scan [address] [place] [address] Localized enlarged lymph nodes Discharge Disposition: Home or Self Care from Last 3 Months Immunizations Name Administration Dates Next Due COVID-19 (Pfizer/Comirnaty) 12yo and older 10/28/2023 Influenza Quadravalent, MDCK , 0.5ml, preservative free (Flucelvax) 6mo and older 11/21/2023 Influenza, Unspecified 12/27/2021 [place] SARS-CoV-2 COVID-19, mRNA, LNP-S, preservative free 10/28/2023,01/26/2021,06/16/2020,2020 Pneumococcal conjugate 20 va lent (Prevnar 20, PCV 20) 2mo and older 11/21/2023 RSV, bivalent, protein subun it RSVpreF, 0.5mL, Preservative Free (Arexvy) 60yo and older 01/30/2023 Tdap Tetanus diptheria acell ular pertussis (Boostrix; Adacel) 7yo and older 10/02/2022 Surgical History Surgery Date Site/Laterality Comments BREAST BIOPSY 07/27/2006 Left PROCEDURE: IN BX BREAST NEEDLE CORE W/O IMAGING GUIDANCE SPX; COMMENT: LCIS OTHER SURGICAL HISTORY PROCEDURE: PULMONOLOGY BRONCHOSCOPY OTHER SURGICAL HISTORY PROCEDURE: HISTORY OTHER; COMMENT: basal cell ca of face and chest Medical History Medical History Date Comments Asthma 06/30/2016 DX:Asthma Hypercholesterolemia 06/30/2016 DX:Hypercho lesterolemia Hypothyroid 06/30/2016 DX:Hypothyroid Pulmonary sarcoidosis ([facility] V24) 06/30/2016 DX:Pulmonary sarcoidosis (HCC) History of breast cancer 07/04/2017 DX:Hist ory of breast cancer; COMMENT: LCIS left breast 2007 History of basal cell carcinoma of skin 07/05/19 18 DX:History of basal cell carcinoma of skin; COMMENT: Face and chest Diastolic dysfunction DX:Diastol ic dysfunction Pulmonary nodules DX:Pulmonary n odules Osteoarthritis DX:Osteoarthriti s Breast cancer ([facility] V24, [facility] V28) 024 left breast s/p lumpectomy, RT Family History Medical History Relation Name Comments Breast cancer Aunt paternal Prostate cancer Father Thyroid disease Mother Breast cancer Sister Thyroid disease Sister Relation Name Status Comments Aunt paternal Father Mother Alive Sister Social History Tobacco Use Types Packs/Day Years Used Date Smoking Tobacco: Former Cigarettes Q uit: 02/27/1984 Smokeless Tobacco: Never Alcohol Use Standard Drinks/Week Comments Yes 3 (1 standard drink = 0.6 oz pur e alcohol) Comments No Sex and Gender Information Value Date Recorded Sex Assigned at Not on file Legal Sex Female 4:06 AM EST Gender Identity Not on file Sexual Orientation Not on file Obstetrics History Last Filed Vital Signs Vital Sign Reading Time Taken Comments Blood Pressure 110/58 05/30/2024 2:17 PM EDT A Pulse 98 05/30/2024 2:17 PM EDT Temperature - - Respiratory Rate - - Oxygen Saturation - - Inhaled Oxygen Concentration - - Weight 71.2 kg (157 lb) 05/30/2024 2:17 PM EDT Height 165.1 cm (5' 5 ) 05/30/2024 2:17 PM EDT Body Mass Index 26.13 05/30/2024 2:17 PM EDT Plan of Treatment Upcoming Encounters Date Type Department Care Team (Late st Contact Info) Description 12/02/2024 3:00 PM EDT Office Visit Internal Medicine - [facility] [address] [facility] [place] [address] Helen Key NP [address] [place] [address] Health Maintenance Due Date Last Done Comments Zoster Vaccines (1 of 2) 2002 Social Influencers of Health Screening 01/29/2022 COVID-19 Vaccine ( season) 2023 10/28/2023, 10/28/2023, 01/09/2022, Additional history exists Depression Screening 11/29/2024 11/30/2023 Falls Risk Assessment 11/29/2024 11/30/2023 Medicare Annual Wellness Visit 11/29/2024 11/30/2023 Breast Cancer Screening 11/26/2025 11/27/2023 Cholesterol Screening (Lipid Panel) 05/30/2029 05/30/2024, 01/31/2024, 12/11/2023, Additional history exists Colorectal Cancer Screening: Colonoscopy 08/13/2030 08/13/2020 Osteoporosis Screening (Bone Density Screening) 11/17/2031 11/16/2021 DTaP,Tdap,and Td Vaccines (2 - Td or Tdap) 10/02/2032 10/02/2022 MMR Vaccines Aged Out 10/15/2020 No longer eligi ble based on patient's age to complete this topic Hepatitis C Screening Completed 04/26/2022 RSV Immunization Adult Patients Completed 01/30/2023 Influenza Vaccine Completed 11/21/2023, , 12/27/2021 Pneumococcal Vaccine: 50+ Years Completed 11/21/2023, 03/06/2020 HIB Vaccines Aged Out No longer eligi ble based on patient's age to complete this topic HPV Vaccines Aged Out No longer eligi ble based on patient's age to complete this topic Hepatitis A Vaccines Aged Out No long er eligible based on patient's age to complete this topic Hepatitis B Vaccines Aged Out No long er eligible based on patient's age to complete this topic IPV Vaccines Aged Out No longer eligi ble based on patient's age to complete this topic Meningococcal ACWY Vaccine Aged Out N o longer eligible based on patient's age to complete this topic Meningococcal B Vaccine Aged Out No l onger eligible based on patient's age to complete this topic RSV Immunization Patients Under 20 months Aged Out No longer eligible based on patient's age to complete this topic Varicella Vaccines Aged Out No longer eligible based on patient's age to complete this topic Procedures Procedure Name Priority Date/Time Associated Diagnosis Comments TRIIODOTHYRONINE FREE Routine 05/30/2024 3:05 PM EDT Acquired hypothyroidism FREE THYROXINE WITH REFLEX TO FREE TRIIODOTHYRONINE Routine 05/30/2024 3:05 PM EDT Acquired hypothyroidism ALANINE AMINOTRANSFERASE Routine 05/30/2024 3:05 PM EDT Hypercholesterolemia ASPARTATE AMINOTRANSFERASE Routine 05/30/2024 3:05 PM EDT Hypercholesterolemia LIPID PANEL WITH REFLEX TO DIRECT LDL Routine 05/30/2024 3:05 PM EDT Hypercholesterolemia THYROID STIMULATING HORMONE WITH REFLEX TO FREE T4 AND FREE T3 Routine 05/30/2024 3:05 PM EDT Acquired hypothyroidism PET CT SKULL TO MID THIGH INITIAL Routine 04/18/2024 11:12 AM EST Localized enlarged lymph nodes DEPRESSION SCREENING Routine 11/30/2023 FALLS RISK ASSESSMENT Routine 11/30/2023 HEPATITIS C SCREENING Routine 04/26/2022 [facility] DEXA AXIAL SKELETON Routine 11/17/19 22 2:57 PM EDT Encounter for screening for osteoporosis COLONOSCOPY Routine 08/13/2020 from Last 3 Months or Most Recently Relevant to Health Maintenance Results * (ABNORMAL) Thyroid stimulating hormone with reflex to free t4 and free t3 (05/30/2024 3:05 PM EDT) TSH 0.18(L) 0.40 - 4.00 mcIU/mL LAB CHEMISTRY METHOD 05/30/2024 7:12 PM EDT [facility] Blood Venous blood specimen / Unknown Venipuncture / Unknown 05/30/2024 3:05 PM EDT 05/30/2024 3:05 PM EDT Helen Shahid ART LIBRARIAN LAB BLOOD ORDERABLES Final Resu lt Performing Organization Address [facility]/ZIP Co de Phone Number [facility] [address] [place] [address], [place] [phone] * Free thyroxine with reflex to free triiodothyronine (05/30/2024 3:05 PM EDT) [facility] Free T4 1.36 0.70 - 1.80 ng/dL LAB CHEMISTRY METHOD 05/30/2024 7:50 PM EDT [facility] Blood Venous blood specimen / Unknown Venipuncture / Unknown 05/30/2024 3:05 PM EDT 05/30/2024 3:05 PM EDT Helen Key LAB BLOOD ORDERABLES Final Resu lt Performing Organization Address [facility]/ZIP Co de Phone Number [facility] [address] [place] [address], [place] [phone] * Lipid panel with reflex to direct LDL (05/30/2024 3:05 PM EDT) [facility] Cholesterol 162 0 - 200 mg/dL LAB CHEMISTRY METHOD 05/30/2024 6:45 PM EDT [facility] Triglycerides 127 0 - 150 mg/dL LAB CHEMISTRY METHOD 05/30/2024 6:45 PM EDT [facility] HDL 71 >=40 mg/dL LAB CHEMISTRY METHOD 05/30/2024 6:45 PM EDT [facility] LDL Calculated 66 0 - 100 mg/dL LAB CHEMISTRY METHOD 05/30/2024 6:45 PM EDT [facility] VLDL Cholesterol Fritz 25.4 mg/dL LAB CHEMISTRY METHOD 05/30/2024 6:45 PM EDT [facility] Non HDL Chol. (LDL+VLDL) 91 <145 mg/dL LAB CHEMISTRY METHOD 05/30/2024 6:45 PM EDT [facility] Chol/HDL Ratio 2.3 0.0 - 4.4 LAB CHEMISTRY METHOD 05/30/2024 6:45 PM EDT [facility] Blood Venous blood specimen / Unknown Venipuncture / Unknown 05/30/2024 3:05 PM EDT 05/30/2024 3:05 PM EDT Helen Key NP LAB BLOOD ORDERABLES Final Resu lt [facility] [address] [place] [address], [place] [phone] * Triiodothyronine free (05/30/2024 3:05 PM EDT) T3, Free 305 230 - 420 pcg/dL LAB CHEMISTRY METHOD 05/30/2024 8:31 PM EDT [facility] Blood Venous blood specimen / Unknown Venipuncture / Unknown 05/30/2024 3:05 PM EDT 05/30/2024 3:05 PM EDT us Helen Key NP LAB BLOOD ORDERABLES Final Resu lt [facility] [address] [place] [address], [place] [phone] * Alanine aminotransferase (05/30/2024 3:05 PM EDT) ALT (SGPT) 20 10 - 60 unit/L LAB CHEMISTRY METHOD 05/30/2024 6:45 PM EDT [facility] Blood Venous blood specimen / Unknown Venipuncture / Unknown 05/30/2024 3:05 PM EDT 05/30/2024 3:05 PM EDT us Helen Key NP LAB BLOOD ORDERABLES Final Resu lt Performing Organization Address [facility]/ZIP Co de Phone Number [facility] [address] [place] [address], [place] [phone] * Aspartate aminotransferase (05/30/2024 3:05 PM EDT) AST (SGOT) 15 10 - 42 unit/L LAB CHEMISTRY METHOD 05/30/2024 6:45 PM EDT [facility] Blood Venous blood specimen / Unknown Venipuncture / Unknown 05/30/2024 3:05 PM EDT 05/30/2024 3:05 PM EDT [facility] LAB BLOOD ORDERABLES Final Resu lt Performing Organization Address [facility] Co de Phone Number [facility] [address] [place] [address], [place] [phone] * PET CT Skull to Mid Thigh Initial (04/18/2024 11:12 AM EST) Anatomical Region Laterality Modality Body Radiographic Hortencia ging 04/21/2024 10:5 3 AM EST Impressions 04/22/2024 4:26 AM EST 1. ??Low-attenuation mediastinal lesion does not demonstrate significant FDG activity 2. ??Mediastinal and bihilar FDG avid lymphadenopathy in keeping with stigmata of sarcoidosis 3. ??Reticular opacities in both lungs demonstrating FDG activity in the upper lobes corresponding to sites of active inflammation 4. ??Asymmetric FDG activity in the left breast and left axilla likely corresponding to history of recent intervention Please note: The CT was acquired at a low radiation dose settings. ??The images are of nondiagnostic quality and used solely for purposes of attenuation correction and slice localization for the PET scan. ??If a diagnostic CT study is desired it must be ordered separately. -------- FINAL REPORT -------- Dictated By: Renetta Haro Dictated Date: 04/21/2024 10:53 ET Assigned Physician: Renetta Haro Reviewed and Electronically Signed By: Renetta Haro Signed Date: 04/22/2024 04:26 ET Workstation ID: [id number] Transcribed By: Self Edit Transcribed Date: 04/22/2024 04:13 ET Narrative 04/22/2024 4:26 AM EST INDICATION: LUNG CANCER SUSPECTED. ??History of left breast cancer status post lumpectomy. ??Increasing in size right paratracheal lymph node versus cyst. ??History of sarcoidosis. TECHNIQUE: FDG PET-CT imaging was performed from the skull bases through the thighs in a single acquisition with data set reconstructed in axial, coronal, and sagittal planes at the computer workstation with fused data from both the PET imaging study and attenuation correction CT. The CT portion of the examination was done strictly for attenuation correction and is not a true diagnostic CT examination. DLP: ??511 mGy-cm Radiopharmaceutical: 10.4 mCi of F-18 FDG IV. Blood glucose: 98 mg/dl. COMPARISON: July 2014 PET/CT as well as outside chest CT dated February 2024 FINDINGS: HEAD AND NECK: No abnormal FDG activity. ??Nonenlarged cervical lymph nodes without significant FDG activity SUV max 1.7 on the left and 2.1 on the right. Previously seen asymmetric activity in the left parotid gland is no longer identified. THORAX: 3.8 x 3.0 cm low-attenuation lesion in the right paratracheal region without significant FDG activity SUV max 0.9. Multiple FDG avid mediastinal and bihilar lymph nodes. ??For example right paratracheal SUV max 6.3, subcarinal/paraesophageal SUV max 4.2, left paratracheal SUV max 4.4, left hilar SUV max 6.9 and right hilar/infrahilar SUV Max 6.9. Bilateral upper lobe predominant reticular opacities SUV Max 3.5 in the right lung apex and 2.4 in the left upper lobe with other scattered opacities demonstrating lower FDG activity SUV max 1.4 on the right and 1.2 on the left. Left breast skin thickening with asymmetric subcutaneous stranding and surgical clips in the left axilla in keeping with history of recent surgery SUV max 2.3. ??Nonenlarged bilateral axillary lymph nodes without significant FDG activity SUV max 0.7 on the left and 0.8 on the right. ABDOMEN/PELVIS: No abnormal FDG activity. Postsurgical change in the right lower quadrant. ??Low-attenuation lesions in the left kidney without significant FDG activity. ??Left-sided parapelvic cysts. MUSCULOSKELETAL: No abnormal FDG activity. Procedure Note Renetta Haro MD - 04/22/2024 INDICATION: LUNG CANCER SUSPECTED. History of left breast cancer statuspost lumpectomy. Increasing in size right paratracheal lymph node versuscyst. History of sarcoidosis. TECHNIQUE: FDG PET-CT imaging was performed from the skull bases throughthe thighs in a single acquisition with data set reconstructed in axial,coronal, and sagittal planes at the computer workstation with fused datafrom both the PET imaging study and attenuation correction CT. The CTportion of the examination was done strictly for attenuation correctionand is not a true diagnostic CT examination. DLP: 511 mGy-cm Radiopharmaceutical: 10.4 mCi of F-18 FDG IV. Blood glucose: 98 mg/dl. COMPARISON: July 2014 PET/CT as well as outside chest CT dated February2024 FINDINGS: HEAD AND NECK: No abnormal FDG activity. Nonenlarged cervical lymph nodeswithout significant FDG activity SUV max 1.7 on the left and 2.1 on theright. Previously seen asymmetric activity in the left parotid gland is no longeridentified. THORAX: 3.8 x 3.0 cm low-attenuation lesion in the right paratrachealregion without significant FDG activity SUV max 0.9. Multiple FDG avid mediastinal and bihilar lymph nodes. For example rightparatracheal SUV max 6.3, subcarinal/paraesophageal SUV max 4.2, leftparatracheal SUV max 4.4, left hilar SUV max 6.9 and righthilar/infrahilar SUV Max 6.9. Bilateral upper lobe predominant reticular opacities SUV Max 3.5 in theright lung apex and 2.4 in the left upper lobe with other scatteredopacities demonstrating lower FDG activity SUV max 1.4 on the right and1.2 on the left. Left breast skin thickening with asymmetric subcutaneous stranding andsurgical clips in the left axilla in keeping with history of recentsurgery SUV max 2.3. Nonenlarged bilateral axillary lymph nodes withoutsignificant FDG activity SUV max 0.7 on the left and 0.8 on the right. ABDOMEN/PELVIS: No abnormal FDG activity. Postsurgical change in the right lower quadrant. Low-attenuation lesionsin the left kidney without significant FDG activity. Left-sidedparapelvic cysts. MUSCULOSKELETAL: No abnormal FDG activity. IMPRESSION: 1. Low-attenuation mediastinal lesion does not demonstrate significantFDG activity 2. Mediastinal and bihilar FDG avid lymphadenopathy in keeping withstigmata of sarcoidosis 3. Reticular opacities in both lungs demonstrating FDG activity in theupper lobes corresponding to sites of active inflammation 4. Asymmetric FDG activity in the left breast and left axilla likelycorresponding to history of recent intervention Please note: The CT was acquired at a low radiation dose settings. The images are ofnondiagnostic quality and used solely for purposes of attenuationcorrection and slice localization for the PET scan. If a diagnostic CTstudy is desired it must be ordered separately. -------- FINAL REPORT -------- Dictated By: Renetta Haro Dictated Date: 04/21/2024 10:53 ET Assigned Physician: Renetta Haro Reviewed and Electronically Signed By: Renetta Haro Signed Date: 04/22/2024 04:26 ET Workstation ID: [id number] Transcribed By: Self Edit Transcribed Date: 04/22/2024 04:13 ET Result [facility] Diego Remy MD IMG NM PROCEDURES Final Re sult * Falls Risk Assessment (11/30/2023) [facility] Falls Risk Assessment abstracted Result [facility] Provider HEALTH MAINTENANCE Final Result * Depression Screening (11/30/2023) [facility] Depression Screening abstracted Result [facility] Provider HEALTH MAINTENANCE Final Result * Hepatitis C Screening (04/26/2022) [facility] Hepatitis C Screening negative Result [facility] Provider HEALTH MAINTENANCE Final Result * [facility] DEXA AXIAL SKELETON (11/16/2021 2:57 PM EDT) Anatomical Region Laterality Modality Mammography 11/16/2021 10:3 8 AM EDT Narrative 11/16/2021 2:57 PM EDT [facility] Diagnostic Imaging Department [address] [place] [id number] Patient: ??CHRISTI SANDERS ?/Age/Sex: 1950 - 71 - F Unit#: ??[id number] ? Location/Status: ??SPDIMAM/REG CLI ? Mnemonic/Ordering Site: ??MAMDEXAAX/SPMAM Ordering Physician: ??CRISTIAN SOSA MD [facility] Dexa Axial Skeleton - 11/16/21 - 1115 HISTORY: ??The [age]-year-old postmenopausal female with clinical concern for metabolic bone disease. FINDINGS: ??Dual energy x-ray absorptiometry of the lumbar spine and femurs is performed. The mean bone mineral density at L1-L4 is 0.914 gm/cm2. This yields a T-score of -2.2 and a Z-score of -0.5 which is diagnostic of osteopenia. The mean bone mineral density of the femurs bilaterally is 0.718 gm/cm2. ??This yields a T-score of -2.3 and a Z-score of -0.8 which is diagnostic of osteopenia. IMPRESSION: 1. Osteopenia. 2. FRAX analysis yields a 10-year probability of major osteoporotic fracture of 15.3% and a 10-year probability of hip fracture of 4.8%. Code 15707 Dictating Physician: ??CECE GARRETT MD Electronically Signed by: ??CECE GARRETT MD Dic Date/Time: ??11/16/21 1449 Sign date/Time: ??11/16/21 2783 Procedure Note Jahaira Garrett MD - 02/15/2022 [facility] Diagnostic Imaging Department [address] [place] [address] Patient: TOMMYCHRISTI D.O.B./Age/Sex: 1950 - 71 - F Unit#: [id number] Location/Status: [facility] Mnemonic[facility]ing [facility] Ordering Physician: CRISTIAN SOSA MD [facility] Dexa Axial Skeleton - 11/16/21 - 1115 HISTORY: The patient is a [age]-year-old postmenopausal female withclinical concern for metabolic bone disease. FINDINGS: Dual energy x-ray absorptiometry of the lumbar spine and femursis performed. The mean bone mineral density at L1-L4 is 0.914 gm/cm2. Thisyields a T-score of -2.2 and a Z-score of -0.5 which is diagnostic of osteopenia. The mean bone mineral density of the femurs bilaterally is 0.718 gm/cm2.This yields a T-score of -2.3 and a Z-score of -0.8 which is diagnostic of osteopenia. IMPRESSION: 1. Osteopenia. 2. FRAX analysis yields a 10-year probability of major osteoporoticfracture of 15.3% and a 10-year probability of hip fracture of 4.8%. Code 19301 Dictating Physician: CECE GARRETT MD Electronically Signed by: CECE GARRETT MD Dic Date/Time: 11/16/21 1449 Sign date/Time: 11/16/21 1457 Cristian Sosa MD IMG BI PROCEDURES Final Re sult * Colonoscopy (08/13/2020) Colonoscopy abstracted, no interpretation Anatomical Region Laterality Modality Other Historical Provider MD HEALTH MAINTENANCE Final Result from Last 3 Months or Most Recently Relevant to [place] [address] [place] [address] MEDICARE [facility] Advance Directives Documents on File Type Date Recorded Patient [employer] Expl anation Health Care Decision (hx) 05/13/2022 AD RUSSO DIRECTIVE Health Care Decision (hx) 05/13/2022 AD RUSSO DIRECTIVE Health Care Decision (hx) 05/13/2022 AD RUSSO DIRECTIVE Health Care Decision (hx) 09/15/2014 AD RUSSO DIRECTIVE Health Care Decision (hx) 09/15/2014 AD RUSSO DIRECTIVE Health Care Decision (hx) 09/15/2014 AD RUSSO DIRECTIVE Health Care Decision (hx) 09/15/2014 AD RUSSO DIRECTIVE Health Care Decision (hx) 09/15/2014 AD RUSSO DIRECTIVE Health Care Decision (hx) 09/15/2014 AD RUSSO DIRECTIVE Health Care Decision (hx) 09/15/2014 AD RUSSO DIRECTIVE Health Care Decision (hx) 09/15/2014 AD RUSSO DIRECTIVE Health Care Decision (hx) 09/11/2014 AD RUSSO DIRECTIVE Health Care Decision (hx) 09/11/2014 AD RUSSO DIRECTIVE Health Care Decision (hx) 09/11/2014 AD RUSSO DIRECTIVE Health Care Decision (hx) 09/11/2014 AD RUSSO DIRECTIVE Health Care Decision (hx) 09/11/2014 AD RUSSO DIRECTIVE Health Care Decision (hx) 09/11/2014 AD RUSSO DIRECTIVE Health Care Decision (hx) 09/11/2014 AD RUSSO DIRECTIVE Health Care Decision (hx) 09/11/2014 AD RUSSO DIRECTIVE Care Teams Anthropology Department Chair Relationship Specialty Start Date End Date Helen Key NP [address] [place] [id number] PCP - General 04/14/22
--- OUTSIDE RECORDS SUMMARY | 2024-07-03 10:56 | XMS_ITS | Continuity of Care Document ---
Author Organization [facility] [address] [place] [address] Phone [phone] Social History Type Date Description Comments Sex Unknown Medical Devices Description No Information Available Encounters Description No Information Available Assessments Description No Information Available Plan of Treatment No Information Available Functional Status Description No Information Available Mental Status Description No Information Available Referrals Description No Information Available
== END 2024-07-03 10:36 | disposition home or self-care (01) ==
LOC: HO.HPS 09:57
PROVIDERS: PCP Nurse Practitioner Primary Care; Visit Provider Hospitalist
DX: R91.8 Other nonspecific abnormal finding of lung field (principal); D86.9 Sarcoidosis, unspecified; J44.9 Chronic obstructive pulmonary disease, unspecified; I51.89 Other ill-defined heart diseases; G47.33 Obstructive sleep apnea (adult) (pediatric); R59.1 Generalized enlarged lymph nodes; J98.59 Other diseases of mediastinum, not elsewhere classified
CPT/HCPCS: 99215

== ENCOUNTER → 2024-07-03 09:57 | Outpatient (BNVA) | payer MEDICARE, SELFPAY | PROVIDERS: PCP Nurse Practitioner Primary Care; Visit Provider Hospitalist | DX: G47.33 Obstructive sleep apnea (adult) (pediatric) (principal); J44.9 Chronic obstructive pulmonary disease, unspecified; J98.59 Other diseases of mediastinum, not elsewhere classified; I51.89 Other ill-defined heart diseases; R06.00 Dyspnea, unspecified; R91.8 Other nonspecific abnormal finding of lung field; D86.9 Sarcoidosis, unspecified; R59.1 Generalized enlarged lymph nodes; Z87.891 Personal history of nicotine dependence | CPT/HCPCS: 99212 ==

== ENCOUNTER 2024-10-31 13:24 | Outpatient (REF) | payer MEDICARE, SELFPAY ==
--- NOTE | ~2024-10-31 | CT_ITS ---
EXAMINATION: CT CHEST WITH CONTRAST CLINICAL INFORMATION: R91.8 COMPARISON: March 06, 2024 reporting a 3.3 cm complex cyst and or low-density lymph node, mediastinum and multiple small pulmonary nodules. CT chest dated June 21, 2020. TECHNIQUE: Multidetector volumetric CT imaging of the chest was obtained after the administration of 65 mL of Omnipaque 350 intravenous contrast without immediate adverse reactions. Axial MIP volume rendering provided. Sagittal and coronal reformatted images were obtained. This CT examination was performed using dose optimization techniques as appropriate, variously including the following: *Automated exposure control *Adjustment of mA and/or kV according to patient size (this includes techniques or standardized protocols for targeted exams where dose is matched to indication/reason for exam; i.e. extremities or head) *Use of iterative reconstruction technique. DLP: 116 mGy centimeter. FINDINGS: NAILER MACHINE: Hyperinflated lungs. Cardiomediastinal silhouette size is normal. Patient's large body habitus. LUNGS: Bilateral, multifocal irregular shaped patchy and linear attenuation abnormality is involving both lungs with the focal areas of bronchiectasis and subcentimeter pulmonary nodules involving mostly the upper lung lobes. No gross honeycombing. Respiratory airways is patent. MEDIASTINUM: There is a well-defined, 4 cm ovoid shaped fluid density nonenhancing or septated cystic lesion in the right midline of the upper middle mediastinum posterior to the right CCA and anterior to the right of the intrathoracic trachea and extending into the aortic arch level. There is no gross mass effect upon the adjacent structures.. Prominent partially calcified mediastinal and perihilar lymph nodes. No aneurysm or dissection, thoracic aorta. Calcified plaques in the thoracic aortic arch and at the ligamentous arteriosum. Mild calcified plaques in the coronary arteries. Calcifications in the anterior aspect of the pericardium/cardiac apex. No pneumomediastinum. No pericardial effusion. PLEURA: No pleural effusion. No pneumothorax. No calcified pleural plaques. No hemothorax. AXILLA: No lymphadenopathy. UPPER ABDOMEN: Cystic lesions in the left kidney. The renal hilum on the left kidney is anterior and lateral oriented. OSSEOUS STRUCTURES: Multilevel cervical thoracic and upper lumbar spondylosis with multiple Schmorl nodes. Trabeculated lesion at T3 likely intraosseous hemangioma. No acute rib fracture. S-shaped curvature of the thoracic spine. There is a well-defined 4 cm fat density lesion posterior to the right scapula resulting in well sclerotic remodeling/scalloping. CT/CT chest w IV con IMPRESSION: Overall worsening pulmonary abnormalities. 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 4 cm mediastinal cyst, larger since June 21, 2020.. Differential diagnostic considerations include bronchogenic cyst versus foregut duplication cyst among other etiologies. 4 cm fat density mass causing sclerotic marginated scalloping abnormality of the right scapula. Overall stable since June 21, 2020.. Fleischner guidelines were followed. Electronically signed by: Jacobo Smart MD 10/31/2024 02:52 PM EDT
--- OUTSIDE RECORDS SUMMARY | 2024-10-31 13:34 | XMS_ITS | Continuity of Care Document ---
Author Organization [facility] [address] [place] [address] Phone [phone] Social History Type Date Description Comments Sex Female Sex Unknown Medical Devices Description No Information Available Encounters Description No Information Available Assessments Description No Information Available Plan of Treatment No Information Available Functional Status Description No Information Available Mental Status Description No Information Available Referrals Description No Information Available
--- OUTSIDE RECORDS SUMMARY | 2024-10-31 13:34 | XMS_ITS | Clinical Summary ---
Author Organization [address] Address [address] [place] [address] [place] [address] Phone Care Team Providers Care Dance Teacher Name Role Phone Helen Key NP Primary Care Provider [phone] Allergies Active Allergy Reactions Criticality Noted Date Comments Amoxicillin-Pot Clavulanate GI intolerance 06/27 Medications budesonide-formo teroL (SYMBICORT) 160-4.5 mcg/actuation inhaler Inhale 2 puffs by mouth 2 (two) times a day. Active albuterol 2.5 mg /3 mL (0.083 %) nebulizer solution Inhale 3 mL (2.5 mg total) by mouth. 05/09/2022 Active atorvastatin (LIPITOR) 10 mg tablet Take 1 Tablet by mouth daily for 360 days. 12/14/2023 Active levothyroxine (SYNTHROID, LEVOTHROID) 100 mcg tablet TAKE 1 TABLET BY MOUTH ONCE PER DAY FOR 6 DAYS PER WEEK 78 tablet 1 05/21/2024 Active metoprolol succinate (TOPROL-XL) 25 mg 24 hr tablet TAKE 1 TABLET BY MOUTH EVERY DAY 90 tablet 1 07/28/2024 Active Active Problems Problem Noted Date Diagnosed Date Palpitations 05/30/2024 Dysthymia 04/26/2022 Osteoporosis 04/26/2022 Asthma 06/30/2016 Hypercholesterolemia 06/30/2016 Acquired hypothyroidism 06/30/2016 Pulmonary sarcoidosis ([facility] [place] [place] V24) 06/30/2016 Immunizations Name Administration Dates Next Due COVID-19 (Pfizer/Comirnaty) 12yo and older 10/28/2023 Influenza Quadravalent, MDCK , 0.5ml, preservative free (Flucelvax) 6mo and older 11/21/2023 Influenza, Unspecified 12/27/2021 Pfizer SARS-CoV-2 COVID-19, mRNA, LNP-S, preservative free 10/28/2023,01/26/2021,06/16/2020,2020 Pneumococcal conjugate 20 va lent (Prevnar 20, PCV 20) 2mo and older 11/21/2023 RSV, bivalent, protein subun it RSVpreF, 0.5mL, Preservative Free (Arexvy) 60yo and older 01/30/2023 Tdap Tetanus diptheria acell ular pertussis (Boostrix; Adacel) 7yo and older 10/02/2022 Surgical History Surgery Date Site/Laterality Comments BREAST BIOPSY 07/27/2006 Left PROCEDURE: [place] BX BREAST NEEDLE CORE W/O IMAGING GUIDANCE SPX; COMMENT: LCIS OTHER SURGICAL HISTORY PROCEDURE: PULMONOLOGY BRONCHOSCOPY OTHER SURGICAL HISTORY PROCEDURE: HISTORY OTHER; COMMENT: basal cell ca of face and chest Medical History Medical History Date Comments Asthma 06/30/2016 DX:Asthma Hypercholesterolemia 06/30/2016 DX:Hypercho lesterolemia Hypothyroid 06/30/2016 DX:Hypothyroid Pulmonary sarcoidosis ([facility] [place] [place] V24) 06/30/2016 DX:Pulmonary sarcoidosis (HCC) History of breast cancer 07/04/2017 DX:Hist ory of breast cancer; COMMENT: LCIS left breast 2006 History of basal cell carcinoma of skin 07/05/19 18 DX:History of basal cell carcinoma of skin; COMMENT: Face and chest Diastolic dysfunction DX:Diastol ic dysfunction Pulmonary nodules DX:Pulmonary n odules Osteoarthritis DX:Osteoarthriti s Breast cancer ([facility] [place] [place] V24, [facility] [place] [place] V28) 024 left breast s/p lumpectomy, RT [...] Sign Reading Time Taken Comments Blood Pressure 129/65 07/16/2024 2:06 PM EDT Pulse 92 07/16/2024 2:06 PM EDT Temperature 36.8 C (98.2 F) 07/16/2024 2:06 PM EDT Respiratory Rate - - Oxygen Saturation - - Inhaled Oxygen Concentration - - Weight 68 kg (150 lb) 07/16/2024 2:06 PM EDT Height 167.6 cm (5' 6 ) 07/16/2024 2:06 PM EDT Body Mass Index 24.21 07/16/2024 2:06 PM EDT Plan of Treatment Upcoming Encounters Date Type Department Care Team (Late st Contact Info) Description 12/02/2024 3:00 PM EDT [facility] [address] [place] [address] Helen Key NP [address] [place] [address] Health Maintenance Due Date Last Done Comments Zoster Vaccines (1 of 2) 05/16/1971 Social Influencers of Health Screening 01/29/2022 Depression Screening 02/27/2024 11/30/2023 COVID-19 Vaccine ( season) 2024 10/28/2023, 10/28/2023, 01/09/2022, Additional history exists Influenza Vaccine (#1) 2024 , 02/02/2022, 12/27/2021 Falls Risk Assessment 11/29/2024 11/30/2023 Medicare Annual [...] 04/26/2022 RSV Immunization Adult Patients Completed 01/30/2023 Pneumococcal Vaccine: 50+ Years Completed 11/21/2023, 03/06/2020 [...] Procedure Name Priority Date/Time Associated Diagnosis Comments LIPID PANEL WITH REFLEX TO DIRECT LDL Routine 05/30/2024 3:05 PM EDT Hypercholesterolemia DEPRESSION SCREENING Routine 11/30/2023 FALLS RISK ASSESSMENT Routine 11/30/2023 HEPATITIS C SCREENING Routine 04/26/2022 [facility] DEXA AXIAL SKELETON Routine 11/16/2021 2:57 PM EDT Encounter for screening for osteoporosis COLONOSCOPY Routine 08/13/2020 from Last 3 Months or Most Recently Relevant to Health Maintenance Results * Lipid panel with reflex to direct LDL (05/30/2024 3:05 PM EDT) [facility] Cholesterol 162 0 - 200 mg/dL LAB CHEMISTRY METHOD 05/30/2024 6:45 PM EDT [facility] Triglycerides 127 0 - 150 mg/dL LAB CHEMISTRY METHOD 05/30/2024 6:45 PM EDT [facility] HDL 71 >=40 mg/dL LAB CHEMISTRY METHOD 05/30/2024 6:45 PM EDT [facility] LDL Calculated 66 0 - 100 mg/dL LAB CHEMISTRY METHOD 05/30/2024 6:45 PM EDT [facility] VLDL Cholesterol Fritz 25.4 mg/dL LAB CHEMISTRY METHOD 05/30/2024 6:45 PM EDT [facility] Non HDL Chol. (LDL+VLDL) 91 <145 mg/dL LAB CHEMISTRY METHOD 05/30/2024 6:45 PM EDT [facility] Chol/HDL Ratio 2.3 0.0 - 4.4 LAB CHEMISTRY METHOD 05/30/2024 6:45 PM EDT [facility] Blood Venous blood specimen / Unknown Venipuncture / Unknown 05/30/2024 3:05 PM EDT 05/30/2024 3:05 PM EDT Helen Key HAT MODEL LAB BLOOD ORDERABLES Final Resu lt [facility] [address] [place] [address], [place] [phone] * Falls Risk Assessment (11/30/2023) [facility] Falls Risk Assessment abstracted us Historical Provider MD HEALTH MAINTENANCE Final Result * Depression Screening (11/30/2023) [facility] Depression Screening abstracted Historical Provider HEALTH MAINTENANCE Final Result * Hepatitis C Screening (04/26/2022) Hepatitis C Screening negative us Historical Provider HEALTH MAINTENANCE Final Result * [facility] DEXA AXIAL SKELETON (11/16/2021 2:57 PM EDT) Anatomical Region Laterality Modality Mammography 11/16/2021 10:3 8 AM EDT Narrative 11/16/2021 2:57 PM EDT [facility] Diagnostic Imaging Department [address] [place] [address] Patient: CHRISTI SANDERS./Age/Sex: 1950 - 71 - F Unit#: [id number] [facility] Ordering Physician: CRISTIAN SOSA MD [facility] Dexa Axial Skeleton - 11/16/213 HISTORY: The [age]-year-old postmenopausal female with clinical concern for metabolic bone disease. FINDINGS: Dual energy x-ray absorptiometry of the lumbar spine and femurs is performed. The mean bone mineral density at L1-L4 is 0.914 gm/cm2. This yields a T-score of -2.2 and a Z-score of -0.5 which is diagnostic of osteopenia. The mean bone mineral density of the femurs bilaterally is 0.718 gm/cm2. This yields a T-score of -2.3 and a Z-score of -0.8 which is diagnostic of osteopenia. IMPRESSION: 1. Osteopenia. 2. FRAX analysis yields a 10-year probability of major osteoporotic fracture of 15.3% and a 10-year probability of hip fracture of 4.8%. Code 40518 Dictating Physician: CECE GARRETT MD Electronically Signed by: CECE GARRETT MD Dic Date/Time: 11/16/21 1449 Sign date/Time: 11/16/21 145 Procedure Note Jahaira Garrett MD - 02/15/2022 [facility] Diagnostic Imaging Department [address] [place] [address] Patient: CHRISTI SANDERS./Age/Sex: 1950 - 71 - F Unit#: [id number] Location/Status: [facility] Mnemonic[facility] Ordering Physician: CRISTIAN SOSA MD [facility] Dexa Axial Skeleton - 11/16/21 - 1113 HISTORY: The patient is a [age]-year-old postmenopausal [...] probability of hip fracture of 4.8%. Code 89815 Dictating Physician: CECE GARRETT MD Electronically Signed by: CECE GARRETT MD Dic Date/Time: 11/16/21 1449 Sign date/Time: 11/16/21 1459 Cristian Sosa MD IMG BI PROCEDURES Final Re sult * Colonoscopy (08/13/2020) Colonoscopy abstracted, no interpretation Anatomical Region Laterality Modality Other Historical Provider HEALTH MAINTENANCE Final Result from Last 3 Months or Most Recently Relevant to Health Maintenance Insurance [facility]ICARE 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
[2024-10-31] MEDS: iohexoL 350 MG/ML 100 ML INFUS..BTL IV (14:30)
[2024-11-04 07:11] LABS: Creatinine POC 0.6 mg/dL (0.5-1.4); GFR POC > 60
== END 2024-10-31 13:25 | disposition home or self-care (01) ==
LOC: HO.CT 13:24
PROVIDERS: PCP Nurse Practitioner Primary Care; Visit Provider Hospitalist
DX: R91.8 Other nonspecific abnormal finding of lung field (principal); R59.1 Generalized enlarged lymph nodes; J98.59 Other diseases of mediastinum, not elsewhere classified
CPT/HCPCS: 71260; 82565; Q9967

== ENCOUNTER → 2024-10-31 13:35 | Outpatient (BNV) | payer MEDICARE, SELFPAY | PROVIDERS: PCP Nurse Practitioner Primary Care; Visit Provider Radiology Diagnostic Radiology | DX: R91.8 Other nonspecific abnormal finding of lung field (principal); J98.59 Other diseases of mediastinum, not elsewhere classified | CPT/HCPCS: 71260 ==

== ENCOUNTER 2024-11-04 10:45 | Outpatient (AMB) | payer MEDICARE, SELFPAY ==
--- NOTE | 2024-11-04 10:51 | MHC.OFFVIS ---
Vital Signs 11/04/24 10:52 Height 5 ft 6 in Weight 160 lb 14.999 oz BMI 26.0 BP 108/50 L Blood Pressure Location Rt brachial Position Sitting Pulse 100 Pulse Source Pulse Oximeter Pulse Oximetry (%) 97 Oxygen Delivery Method Room Air Intake Visit Reasons: Sleep apnea Reel Operator Required: No Accompanied by: Self / Same As Patient Allergies No Known Allergies Allergy (Verified 11/04/24 10:55) HPI Comments Details: Patient is a 74 y/o woman with a history of sarcoidosis which is of biopsy-proven. She has been doing very well. Back in December 2017 she was exposed to significant out side exposures including grass clippings and believes that she was having worsening cough and shortness of breath. At that point was unclear if she had a reactivation of her sarcoidosis. His sarcoid level was normal. She did have a CT scan of the chest back in April 2017 demonstrating stable parenchymal changes with nodular densities and lymphadenopathy which have been stable. Granulomas which have been stable. She has not had to use her rescue inhaler or inhaled cortical steroids up to this point. She feels well without any significant cough or shortness of breath. We did review her last CT scan at this point the patient should get a repeat CT scan in the future needs to make sure that she has her she iced check for uveitis and also her blood work as breast to have make sure that he with kidney function and calcium levels are within normal limits. 08/02/2023 the patient is here for a pulmonary follow-up visit. Overall she has doing about the same. Still having some dyspnea on exertion [id number] with activity. Explained to the patient likely multifactorial. We did go for a walking oximetry the patient did have an elevated heart rate. I did give her information about the online pulmonary rehabilitation that she can look at to start exercising more regularly. The patient also has inhalers that she can use as needed for worsening respiratory symptoms. She did have a CT scan of the chest back in 08/15/2022 which we personally reviewed demonstrating significant parenchymal disease nodular densities and lymphadenopathy. This is likely all related to the sarcoidosis. She is supposed repeat CT scan this time. In the meantime she also complains of significant daytime drowsiness. Her Welcome score is elevated 12/24. She does have headaches in the morning and does have episodes of apnea. The patient will benefit from a home sleep study at this time. 12/04/2023 the patient is here for a pulmonary follow-up visit. The patient overall has been doing okay. She continues to have significant daytime drowsiness with an Welcome score of 12/24. She has significant snoring and she wakes up very tired. She does have headaches at times. The patient did have a home sleep study she months ago and she has severe sleep apnea with an AHI greater than 30. She also has hypoxia. The patient is agreeable to start CPAP at this time for her significant disease. Will set her up with a local [facility]. In regards of her imaging studies she had a CT scan back in 08/15/2022. Demonstrating the ongoing pulmonary disease parenchymal disease and pulmonary nodules. Will plan to repeat the CT scan when she returns in 3-4 months to assess any progression of disease. Otherwise she continues to use her current respiratory therapy will follow-up in 3-[address] scan after she starts her CPAP. She will bring her CPAP to the next visit. 03/05/2024 the patient is here for pulmonary follow-up visit. Overall she is doing okay. She unfortunately got diagnosed breast cancer. She is going to have a lumpectomy soon. She does have a family history of breast cancer in the family. She is also due for CT scan of the chest. She is scheduled for tomorrow. Therefore follow-up with afterwards. She is also getting used to her CPAP. CPAP therapy continues to be affecting beneficial. She does use it for more than 4 hours a night. Her AHI still elevated at 9. I did adjust her pressures from 6-16 2 8-18. Hopefully the higher pressures will help her decrease her AHI to below 5. If she can not tolerate the higher pressure she is going to call. She is using a fullface mask. I did recommend she continue with a fullface mask based on the fact that her pressures are above average. If she has any issues she will call for further evaluation. 04/08/2024 the patient is here for a pulmonary follow-up visit. Overall she is doing well. She is tolerating CPAP. AHI continues to be little elevated but she is getting used to the high pressures. Hopefully we can increase the pressures further the coming months. In the meantime we did review her CT scan of the chest. She appears to have a interval increase in a mediastinal cystic like area. She has a PET scan pending. Will follow up with the results. In the meantime she is going to start getting radiation for breast cancer. I will give a call will have the results of the PET scan. Meantime will plan to follow-up in 3-4 months. 07/03/2024 the patient is here for pulmonary follow-up visit. Overall she is doing okay. She continues use her CPAP. She still having elevated AHI is still waking up tired. I did download the machine. The APAP seems like it is not going above a pressure of 13 cm. Is set up to go to 18 cm. She still has about 8 episodes an hour of sleep apnea. I had increase the pressures last time will go ahead and increasing again and she is going to call week or 2 to see if she is making any progress. Meantime I will also adjust the humidity. The patient did undergo a PET scan because she has the mediastinal density. The mediastinal density had a low FDG suggesting benign process. Although, this slowly has increased in size. Will go ahead and repeat a CAT scan again and if it continues to grow will go ahead and refer her to thoracic surgery or consider endobronchial ultrasound bronchoscopy with needle sampling. Also to note the patient did have slightly active hilar and mediastinal lymph nodes consistent with a history of sarcoidosis. Will follow-up in 4-6 months if she has any issues any worsening symptoms she will call. And again she will call for her CPAP if he needs additional adjustments. Also, since the pressures unlike going up consider sending her back to her [employer] company to assess the machine in case it is not working properly as the pressures are not increasing effectively. 11/04/2024 the patient is here for pulmonary follow-up visit. Overall she is doing about the same. Still complaining of dyspnea on exertion. Family members have told her that she seems to be dyspneic. We did go for brief walking oximetry and actually she did well from a pulse ox standpoint. The patient was minimally dyspneic. Heart rate though was elevated went up to about 115 beats per minute with minimal activity. Even at restless of in the high 90s low 100s. Therefore, will go ahead investigate further for any cardiac etiologies but at least from a pulmonary standpoint she seems to be doing okay. Her Symbicort seems to be efficient without any wheezing or any prolonged respirations. The patient did have a CT scan of the chest that I personally reviewed. We also compared to her previous. It appears that this mediastinal cystic area is getting larger. She did have a PET scan at [facility] which is reassuring. But based on the fact that it is getting larger she is agreeable to being evaluated by thoracic surgery just to make sure that is not something of any concern. I do believe that appears to be benign but however has grown in size. She has other findings consistent with sarcoid although at this point minimal changes develop. She also has some scarring radiation fibrosis from radiation she received to her left breast. That appears to be fairly stable. Therefore will continue her on her current respiratory therapy. Will request an echocardiogram. I doubt cardiac sarcoid but it sometimes considered. And she will follow-up with thoracic surgery. She will follow-up with us in the springtime if any issues arise she can always call for further recommendations. [facility] Medical History (Updated 11/04/24 @ 20:44 by Diego Remy MD) Mediastinal cyst Mediastinal mass Breast cancer TAHIRA (obstructive sleep apnea) Diastolic dysfunction Tachycardia Dyspnea Pulmonary nodules Sarcoidosis Asthma-COPD overlap syndrome Social History Alcohol intake: current Alcohol intake frequency: holidays/special occasions only Patient Tobacco Use Status: Former Tobacco user Tobacco use type: Cigarette Years Smoked: 15 years Review of Systems Const Denies chills, Reports daytime sleepiness, Reports difficulty sleeping, Denies fatigue, Denies fever(s), Denies weight gain and Denies weight loss ENT Denies dizziness, Denies lip swelling and Denies tongue swelling Card Denies chest pain, Denies leg edema, Denies lightheadedness, Denies palpitations, Denies dyspnea on exertion, Denies orthopnea and Denies other Resp Denies cough and Denies dyspnea on exertion GI Denies hematochezia and Denies change in stool character Musc Denies abnormal gait, Denies muscle weakness, Denies numbness, Denies radiating pain into limb and Denies tingling Skin/Breast Reports as per HPI Neuro Denies abnormal gait, Denies dizziness, Denies numbness and Denies tingling Psych Denies no additional complaints Endo Denies fatigue and Denies palpitations Bruno/Lymph Denies easy bleeding and Denies lymphadenopathy Aller/Immun Denies lip swelling and Denies tongue swelling Physical Exam Vital Signs: Last Vital Signs Pulse 100 11/04/24 10:52 BP 108/50 L 11/04/24 10:52 Pulse Ox 97 11/04/24 10:52 Oxygen Delivery Method Room Air 11/04/24 10:52 BMI result Body Mass Index 26.0 Const General: alert Neck Neck: Yes full ROM Chest Chest palpation & inspection: normal inspection of the chest Resp Effort & Inspection: normal respiratory effort Auscultation: diminished lung sounds Cardio Rate: regular rate Rhythm: regular rhythm Heart sounds: S1 normal heart sound present and S2 normal heart sound present GI Palpation (GI): Soft to palpation and nontender Auscultation: normal bowel sounds Skin General skin exam: rashes and/or lesions noted Assessment & Plan Assessment & Plan (1) Diastolic dysfunction: Code(s): I51.89 - Other ill-defined heart diseases Category: Medical (2) Dyspnea: Code(s): R06.00 - Dyspnea, unspecified Category: Medical Qualifiers: Dyspnea type: dyspnea on exertion Qualified Code(s): R06.00 - Dyspnea, unspecified (3) Pulmonary nodules: Code(s): R91.8 - Other nonspecific abnormal finding of lung field Category: Medical (4) Sarcoidosis: Code(s): D86.9 - Sarcoidosis, unspecified Category: Medical (5) Asthma-COPD overlap syndrome: Code(s): J44.9 - Chronic obstructive pulmonary disease, unspecified Category: Medical (6) TAHIRA (obstructive sleep apnea): Code(s): G47.33 - Obstructive sleep apnea (adult) (pediatric) Category: Medical (7) Lymphadenopathy: Code(s): R59.1 - Generalized enlarged lymph nodes Category: Medical (8) Mediastinal mass: Comment: cystic Code(s): J98.59 - Other diseases of mediastinum, not elsewhere classified Category: Medical (9) 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
[2024-11-04 10:52] VITALS: BP 108/50; PULSE 100; O2SAT 97; BMI 26.0
--- OUTSIDE RECORDS SUMMARY | 2024-11-04 12:57 | XMS_ITS | Clinical Summary ---
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 Name Role Phone Helen Key NP Primary Care Provider [phone] Allergies Active Allergy Reactions Criticality Noted Date [...] Hypercholesterolemia 06/30/2016 Acquired hypothyroidism 06/30/2016 Pulmonary sarcoidosis ([facility] V24) 06/30/2016 Immunizations Name Administration Dates Next [...] Site/Laterality Comments BREAST BIOPSY 07/27/2006 Left PROCEDURE: FL BX BREAST NEEDLE CORE W/O IMAGING GUIDANCE SPX; COMMENT: LCIS OTHER SURGICAL HISTORY PROCEDURE: PULMONOLOGY BRONCHOSCOPY OTHER SURGICAL HISTORY PROCEDURE: HISTORY OTHER; COMMENT: basal cell ca of face and chest Medical History Medical History Date Comments Asthma 06/30/2016 DX:Asthma Hypercholesterolemia 06/30/2016 DX:Hypercho lesterolemia Hypothyroid 06/30/2016 DX:Hypothyroid Pulmonary sarcoidosis ([facility] V24) 06/30/2016 DX:Pulmonary sarcoidosis (HCC) History of breast cancer 07/04/2017 DX:Hist ory of breast cancer; COMMENT: LCIS left breast 2006 History of basal cell carcinoma of skin 07/05/19 18 DX:History of basal cell carcinoma of skin; COMMENT: Face and chest Diastolic dysfunction DX:Diastol ic dysfunction Pulmonary nodules DX:Pulmonary n odules Osteoarthritis DX:Osteoarthriti s Breast cancer ([facility] V24, [facility] V28) 024 left breast s/p lumpectomy, RT [...] PM EDT [facility] Visit [facility] [address] [place] [address] Helen Key NP [address] [place] [address] Health Maintenance Due Date Last Done Comments [...] Routine 11/30/2023 HEPATITIS C SCREENING Routine 04/26/2022 [facility] DEXA AXIAL SKELETON Routine 11/16/2021 2:57 PM EDT Encounter for screening for osteoporosis COLONOSCOPY Routine 08/13/2020 from Last 3 Months or Most Recently Relevant to Health Maintenance Results * Lipid panel with reflex to direct LDL (05/30/2024 3:05 PM EDT) [facility] Cholesterol 162 0 - 200 mg/dL LAB CHEMISTRY METHOD 05/30/2024 6:45 PM EDT [facility] Triglycerides 127 0 - 150 mg/dL LAB CHEMISTRY METHOD 05/30/2024 6:45 PM EDT [facility] HDL 71 >=40 mg/dL LAB CHEMISTRY METHOD 05/30/2024 6:45 PM EDT [facility] LDL Calculated 66 0 - 100 mg/dL LAB CHEMISTRY METHOD 05/30/2024 6:45 PM EDT [facility] VLDL Cholesterol Fritz 25.4 mg/dL LAB CHEMISTRY METHOD 05/30/2024 6:45 PM EDT [facility] Non HDL Chol. (LDL+VLDL) 91 <145 mg/dL LAB CHEMISTRY METHOD 05/30/2024 6:45 PM EDT [facility] Chol/HDL Ratio 2.3 0.0 - 4.4 LAB CHEMISTRY METHOD 05/30/2024 6:45 PM EDT [facility] Blood Venous blood specimen / Unknown Venipuncture / Unknown 05/30/2024 3:05 PM EDT 05/30/2024 3:05 PM EDT Helen Key MATERIALS PLANNING ANALYST LAB BLOOD ORDERABLES Final Resu lt [facility] [address] [place] [address], [place] [phone] * Falls Risk Assessment (11/30/2023) [facility] Falls Risk Assessment abstracted us Historical Provider MD HEALTH MAINTENANCE Final Result * Depression Screening (11/30/2023) [facility] Depression Screening abstracted Historical Provider HEALTH MAINTENANCE Final Result * Hepatitis C Screening (04/26/2022) Hepatitis C Screening negative us Historical Provider HEALTH MAINTENANCE Final Result * [facility] DEXA AXIAL SKELETON (11/16/2021 2:57 PM EDT) Anatomical Region Laterality Modality Mammography 11/16/2021 10:3 8 AM EDT Narrative 11/16/2021 2:57 PM EDT [facility] Diagnostic Imaging Department [address] [place] [address] Patient: CHRISTI SANDERS./Age/Sex: 1950 - 71 - F Unit#: [id number] [facility] Ordering Physician: CRISTIAN SOSA MD [facility] Dexa Axial Skeleton - 11/16/212 HISTORY: The [age]-year[age] postmenopausal [...] probability of hip fracture of 4.8%. Code 41275 Dictating Physician: CECE GARRETT MD Electronically Signed by: CECE GARRETT MD Dic Date/Time: 11/16/21 1449 Sign date/Time: 11/16/21 1450 Procedure Note Jahaira Garrett MD - 02/15/2022 [facility] Diagnostic Imaging Department [address] [place] [address] Patient: CHRISTI SANDERS./Age/Sex: 1950 - 71 - F Unit#: [id number] Location/Status: [facility] Mnemonic/[facility]ing [facility] Ordering Physician: CRISTIAN SOSA MD [facility] Dexa Axial Skeleton - 11/16/21 - 1116 HISTORY: The [age]-year-old postmenopausal [...] probability of hip fracture of 4.8%. 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
== END 2024-11-04 11:32 | disposition home or self-care (01) ==
LOC: HO.HPS 10:46
PROVIDERS: PCP Nurse Practitioner Primary Care; Visit Provider Hospitalist
DX: I51.89 Other ill-defined heart diseases (principal); R06.00 Dyspnea, unspecified; R91.8 Other nonspecific abnormal finding of lung field; D86.9 Sarcoidosis, unspecified; J44.9 Chronic obstructive pulmonary disease, unspecified; G47.33 Obstructive sleep apnea (adult) (pediatric); R59.1 Generalized enlarged lymph nodes; J98.59 Other diseases of mediastinum, not elsewhere classified; Q34.1 Congenital cyst of mediastinum
CPT/HCPCS: 99214; G2211

== ENCOUNTER → 2024-11-04 10:45 | Outpatient (BNVA) | payer MEDICARE, SELFPAY | PROVIDERS: PCP Nurse Practitioner Primary Care; Visit Provider Hospitalist | DX: G47.33 Obstructive sleep apnea (adult) (pediatric) (principal); I51.89 Other ill-defined heart diseases; R06.00 Dyspnea, unspecified; R91.8 Other nonspecific abnormal finding of lung field; D86.9 Sarcoidosis, unspecified; J44.9 Chronic obstructive pulmonary disease, unspecified; R59.1 Generalized enlarged lymph nodes; J98.59 Other diseases of mediastinum, not elsewhere classified; Q34.1 Congenital cyst of mediastinum; Z87.891 Personal history of nicotine dependence | CPT/HCPCS: 99212 ==

== ENCOUNTER → 2024-12-25 08:55 | Outpatient (REF) | payer MEDICARE, SELFPAY ==
--- NOTE | 2024-12-25 08:57 | CA_ITS ---
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 The calculated ejection fraction is 62% by biplane method. - No obvious valvular pathology seen on this study. - There is no evidence of pulmonary hypertension. Findings Procedure Information Contrast agent, definity, is being given per protocol without apparent complications. Left Ventricle Normal left ventricular cavity size. There is normal left ventricular wall thickness. The left ventricular systolic function is normal. The calculated ejection fraction is 62% by biplane method. There is no evidence of regional wall motion abnormalities. Diastolic function is normal for age. Right Ventricle Normal right ventricular cavity size and systolic function. Atria The left atrium is mildly dilated. The right atrium is normal in size. Aortic Valve There is a normal trileaflet aortic valve. There is no aortic valve stenosis. There is trace (trivial) aortic valve regurgitation. Mitral Valve The mitral valve appears normal. There is trace mitral valve regurgitation. There is no mitral valve stenosis. Pulmonic Valve The pulmonic valve is likely normal. Tricuspid Valve There is trace tricuspid valve regurgitation. There is no evidence of pulmonary hypertension. Great Vessels The asc aorta is normal in size. Small plaque is seen in the sino tubular ridge. Venous The inferior vena cava is normal in size and collapses less than 50% with inspiration. Pericardium/Pleural There is a trivial pericardial effusion. Prior Study Comparison No significant change compared to prior study dated: 06/21/2020. Recommendations, Care & Conclusions No obvious valvular pathology seen on this study. Measurements 2D Linear Measurements IVSd: 0.91 0.6-0.9/0.6-1.0 cm LVIDd: 3.78 3.9-5.3/4.2-5.9 cm LVIDd Index: 2.08 2.4-3.2/2.2-3.1 cm/m2 LVIDs: 2.55 2.0-3.6 cm LVPWd: 0.89 0.7-1.1 cm LA Diam: 3.50 2.7-3.8/3.0-4.0 cm LAIDs Index: 1.92 1.5-2.3 cm/m2 LV Mass: 124.71 67-162/88-224 g LV Mass Index: 68.52 43-95/49-115 g/m2 LVOT Diam: 2.10 3.0+(-)1.3 cm 2D Systolic Function EF 4C: 55.80 >55% EF 2C: 67.30 >55% EF BiP: 62.00 >55% Mitral Valve MV Pk E: 0.71 MV PK A: 0.79 MV Decel Time: 170.00 E/A: 0.90 E'Lateral: 8.05 E'Medial: 7.51 E/E' Med: 9.50 E/E' Lat: 8.80 PHT: 50.00 MVA PHT: 4.40 Decel [place]: 4.19 Aortic Valve AoV Pk Marcio: 1.06 AoV Mn Marcio: 0.75 AoV VTI: 0.22 AoV Pk Grad: 4.00 Aov Mn Grad: 3.00 TOMY Cont.VTI: 3.13 LVOT LVOT Pk Marcio: 1.00 LVOT Mn Marcio: 0.67 LVOT VTI: 0.20 LVOT Pk Grad: 4.00 LVOT Mn Grad: 2.00 LVOT Diam: 2.10 LVOT Area: 3.46 Diastolic Function MV Pk E: 0.71 MV Pk A: 0.79 E/A: 0.90 E'Medial: 7.51 E/E' Med: 9.50 E' Laterial: 8.05 E/E' Lat: 8.80 Right Ventricle TAPSE (mm): 22.60 TVS' Marcio: 10.40 Tricuspid Valve TR Pk Marcio: 2.06 TR Pk Grad: 17.00 RA Press: 8.00 RVSP: 25.00 Great Vessels Aorta Sinus of Valsalva: 3.03 2.0-3.5 cm Ao Asc: 2.80 2.1-3.4 cm Updated in Other Vendor System with Status of Final Manuel Ch MD electronically signed on 12/27/2024 10:34:58 AM with status of Final
--- OUTSIDE RECORDS SUMMARY | 2024-12-25 09:56 | XMS_ITS | Continuity of Care Document ---
Author Organization [facility] [address] [facility] [address] [place] [address] Phone [phone] Social History Type Date Description Comments Sex Female Sex Unknown Medical Devices Description No Information Available Encounters Description No Information Available Assessments Description No Information Available Plan of Treatment No Information Available Functional Status Description No Information Available Mental Status Description No Information Available Referrals Description No Information Available
--- OUTSIDE RECORDS SUMMARY | 2024-12-25 09:56 | XMS_ITS | Clinical Summary ---
Author Organization [address] Address [address] [place] [phone] Phone Care Team Providers Care Neonatal Critical Care Nurse Name Role Phone Helen Key NP Primary Care Provider [phone] Allergies Active Allergy Reactions Criticality Noted Date Comments Amoxicillin-Pot Clavulanate GI intolerance 06/27 Medications budesonide-for moteroL (SYMBICORT) 160-4.5 mcg/actuation inhaler Inhale 2 puffs by mouth 2 (two) times a day. Active albuterol 2.5 mg /3 mL (0.083 %) nebulizer solution Inhale 3 mL (2.5 mg total) by mouth. 3 Active exemestane (AROMASIN) 25 mg tablet Take 1 tablet (25 mg total) by mouth 1 (one) time each day 5 Active metoprolol succinate (TOPROL-XL) 25 mg 24 hr tablet Take 1 tablet (25 mg total) by mouth 1 (one) time each day. 90 tablet 3 5 Active levothyroxine (SYNTHROID, LEVOTHROID) 100 mcg tablet Take 1 tablet by mouth 5 days per week 78 tablet 3 5 Active atorvastatin (LIPITOR) 10 mg tablet Take 1 tablet (10 mg total) by mouth 1 (one) time each day. 90 each 3 5 026 Active atorvastatin (LIPITOR) 10 mg tablet Take 1 Tablet by mouth daily for 360 days. 4 025 Discontinued metoprolol succinate (TOPROL-XL) 25 mg 24 hr tablet TAKE 1 TABLET BY MOUTH EVERY DAY 90 tablet 1 5 025 Discontinued(Re order) levothyroxine (SYNTHROID, LEVOTHROID) 100 mcg tablet TAKE 1 TABLET BY MOUTH ONCE PER DAY FOR 6 DAYS PER WEEK 78 tablet 1 5 025 Discontinued atorvastatin (LIPITOR) 10 mg tablet Take 1 tablet (10 mg total) by mouth 1 (one) time each day. 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 I did discuss the findings of her CT scan and PET scan over time including how PET scans work. I discussed the most likely possibilities of this being a cyst which would either be a bronchogenic cyst, duplication cyst, or pericardial cyst which are all benign. There is also a possibility given some slight growth over time that this is not a cyst and a solid neoplasm. I discussed the options with her which are continued observation versus surgical resection. Risks and benefits were discussed between these alternatives which she seemed understand. Ultimately, she decided on observation and I think doing an MRI of the chest at this point would better serve us in terms of determining more definitively whether this is a cyst or not. Plan then will be for an MRI of the chest with and without contrast and a follow-up with me after that. Palpitations 05/30/2024 Dysthymia 04/26/2022 Assessment & Plan (12/02/2024 3:33 PM EDT): Symptomatic, patient attributes this to her chemotherapy. Advised if mood disorder continues can consider going back on Wellbutrin. She is advised to follow-up in the office for this. Osteoporosis 04/26/2022 Asthma 06/30/2016 Assessment & Plan (12/02/2024 3:33 PM EDT): Stable without recent exacerbation. Continue maintenance therapy Hypercholesterolemia 06/30/2016 Assessment & Plan (12/02/2024 3:33 PM EDT): Controlled. Continue statin. Orders: Lipid panel with reflex to direct LDL; Future Acquired hypothyroidism 06/30/2016 Assessment & Plan (12/02/2024 3:33 PM EDT): Clinically euthyroid. Update TSH continue levothyroxine Orders: Thyroid stimulating hormone with reflex to free t4 and free t3; Future Pulmonary sarcoidosis ([facility] V24) 06/30/2016 Encounters Date Type Department Care Team Description 12/08/2024 Results Follow-Up Internal Medicine - [address] [phone] [place]anah Galeas [place] 12/02/2024 3:00 PM EDT Office Visit Internal Medicine - [address] [phone] Helen Key NP Adult general medical examination (Primary Dx); Hypercholesterolemia; Acquired hypothyroidism; Screening for deficiency anemia; Screening for metabolic disorder; Encounter for lipid screening for cardiovascular disease; Moderate persistent asthma without complication; Dysthymia; Immunization due 11/27/2024 1:38 PM EDT - 11/27/2024 11:59 PM EDT Hospital Encounter [facility] MRI [address] [place] [id number] Mediastinal mass Discharge Disposition: Home or Self Care 11/17/2024 11:00 AM EDT Consult Thoracic Surgery - [place] [address] [facility] [address] [place] [id number] Maxine Smith MD Mediastinal mass (Primary Dx); Pulmonary sarcoidosis (CMS/HCC V24) from Last 3 Months Immunizations Immunization Administration Dates Next Due COVID-19 (Pfizer/Comirnaty) 12yo and older 10/28/2023 Influenza Quadravalent, MDCK , 0.5ml, preservative free (Flucelvax) 6mo and older 11/21/2023 Influenza trivalent, 0.5mL ( Fluad) 65yo and older 12/02/2024 Influenza, Unspecified 12/27/2021 Pfizer SARS-CoV-2 COVID-19, mRNA, LNP-S, preservative free 10/28/2023,01/26/2021,06/16/2020,2020 Pneumococcal conjugate 20 va lent (Prevnar 20, PCV 20) 2mo and older 11/21/2023 RSV, bivalent, protein subun it RSVpreF, 0.5mL, Preservative Free (Arexvy) 50yo and older 01/30/2023 Tdap Tetanus diptheria acell ular pertussis (Boostrix; Adacel) 7yo and older 10/02/2022 Surgical History Surgery Date Site/Laterality Comments BREAST BIOPSY 07/27/2006 Left PROCEDURE: VA BX BREAST NEEDLE CORE W/O IMAGING GUIDANCE SPX; COMMENT: LCIS OTHER SURGICAL HISTORY PROCEDURE: PULMONOLOGY BRONCHOSCOPY OTHER SURGICAL HISTORY PROCEDURE: HISTORY OTHER; COMMENT: basal cell ca of face and chest BREAST LUMPECTOMY Left Medical History Medical History Date Comments Asthma 06/30/2016 DX:Asthma Hypercholesterolemia 06/30/2016 DX:Hypercho lesterolemia Hypothyroid 06/30/2016 DX:Hypothyroid Pulmonary sarcoidosis ([facility] V24) 06/30/2016 DX:Pulmonary sarcoidosis (HCC) History of breast cancer 07/04/2017 DX:Hist ory of breast cancer; COMMENT: LCIS left breast 2006 History of basal cell carcinoma of skin 07/05/19 18 DX:History of basal cell carcinoma of skin; COMMENT: Face and chest Diastolic dysfunction DX:Diastol ic dysfunction Pulmonary nodules DX:Pulmonary n odules Osteoarthritis DX:Osteoarthriti s Breast cancer ([facility] V24, [facility] V28) 024 left breast s/p lumpectomy, RT Family History Medical History Relation Name Comments Breast cancer Aunt paternal Prostate cancer Father Thyroid disease Mother Breast cancer Sister Thyroid disease Sister Relation Name Status Comments Aunt paternal Father Mother Alive Sister Social History Tobacco Use Types Packs/Day Years Used Date Smoking Tobacco: Former Cigarettes Q uit: 02/27/1984 Smokeless Tobacco: Never Tobacco Cessation:Counseling Given: Not Answered Alcohol Use Standard Drinks/Week Comments Yes 3 (1 standard drink = 0.6 oz pur e alcohol) Housing Instability Answer Date Recorde d Are you worried that in the next 2 months you may not have stable housing? No 12/01/2024 Food Access & Nutrition Answer Date Rec orded Do you have access to a vari ety of food including fruits and vegetables? Yes 12/01/2024 Access to Healthcare Answer Date Record ed Within the last 3 months, ho w many times did you visit the emergency department for your medical care? 0 12/01/2024 Health Literacy Answer Date Recorded How often do you need to hav e someone help you when you read instructions, pamphlets, or other written material from your doctor or pharmacy? Never 12/01/2024 Caregiver: How often do you need to have someone help you when you read instructions, pamphlets, or other written material from your doctor or pharmacy? Not on file 12/01/2024 Financial Risk Answer Date Recorded How hard is it for you to pa y for the very basics like food, housing, medical care, and air conditioning / heating? Not very hard 12/01/2024 Transportation Answer Date Recorded Has the lack of transportati on kept you from meetings, work, or from getting things needed for daily living? No Has the lack of transportati on kept you from medical appointments or from getting medications? No 12/01/2024 Social Isolation Answer Date Recorded How often do you feel lonely or isolated from those around you? Sometimes 12/01/2024 Food Risk Answer Date Recorded Within the past 12 months we worried whether our food would run out before we got money to buy more. Never true 12/01/2024 Within the past 12 months th e food we bought just didn't last and we didn't have money to get more. Never true 12/01/2024 Dependent Care Answer Date Recorded Do you need help finding or paying for care for your loved ones. For example, exceptional children teacher or elderly care for an older adult? No 12/01/2024 Education Answer Date Recorded Do you think completing more education or training, like finishing a GED, going to college, or learning a trade, would be helpful for you? N/A 12/01/2024 Employment and Income Answer Date Recor ded During the last four weeks, have you been actively looking for work? No 12/01/2024 Living Situation Answer Date Recorded What is your living situation? Unrecognized valu e 12/01/2024 Comments No Sex and Gender Information Value Date Recorded Sex Assigned at Not on file Legal Sex Female 4:06 AM EST Gender Identity Not on file Sexual Orientation Not on file Obstetrics History Last Filed Vital Signs Vital Sign Reading Time Taken Comments Blood Pressure 117/69 12/02/2024 2:56 PM EDT A Pulse 99 12/02/2024 2:56 PM EDT Temperature 36.3 C (97.3 F) 11/17/2024 11:15 AM EDT Respiratory Rate 18 11/17/2024 11:15 AM EDT Oxygen Saturation 99% 11/17/2024 11:15 AM EDT Inhaled Oxygen Concentration - - Weight 73.1 kg (161 lb 3.2 oz) 12/02/2024 2:56 P M EDT Height 167.6 cm (5' 6 ) 12/02/2024 2:56 PM EDT Body Mass Index 26.02 12/02/2024 2:56 PM EDT Plan of Treatment Upcoming Encounters Date Type Department Care Team (Late st Contact Info) Description 06/02/2025 10:15 AM EDT Office Visit Internal Medicine - [facility] [address] [place], [place] [phone] Helen Key, [place] [address] [place] [address] Health Maintenance Due Date Last Done Comments Zoster Vaccines (1 of 2) 05/16/1969 COVID-19 Vaccine ( season) 2024 10/28/2023, 10/28/2023, 01/09/2022, Additional history exists Breast Cancer Screening 11/26/2025 11/27/2023 Social Influencers of Health Screening 12/01/2025 12/01/2024 Falls Risk Assessment 12/02/2025 12/02/2024, 024 Medicare Annual Wellness Visit 12/02/2025 12/02/2024 Cholesterol Screening (Lipid Panel) 12/08/2029 12/08/2024, 05/30/2024, 01/31/2024, Additional history exists Colorectal Cancer Screening: Colonoscopy 08/13/2030 08/13/2020 Osteoporosis Screening (Bone Density Screening) 11/17/2031 11/16/2021 DTaP,Tdap,and Td Vaccines (2 - Td or Tdap) 10/02/2032 10/02/2022 MMR Vaccines Aged Out 10/15/2020 No longer eligi ble based on patient's age to complete this topic Hepatitis C Screening Completed 04/26/2022 RSV Immunization Adult Patients Completed 01/30/2023 Pneumococcal Vaccine: 50+ Years Completed 11/21/2023, 03/06/2020 Depression Screening Completed 12/01/2024, 11/30/19 Influenza Vaccine Completed 12/02/2024, , 02/02/2022, Additional history exists HIB Vaccines Aged Out No longer eligi [...] Procedure Name Priority Date/Time Associated Diagnosis Comments COMPLETE BLOOD COUNT Routine 12/08/2024 10:23 AM EDT Screening for deficiency anemia COMPREHENSIVE METABOLIC PANEL Routine 12/08/2024 10:23 AM EDT Screening for metabolic disorder LIPID PANEL WITH REFLEX TO DIRECT LDL Routine 12/08/2024 10:23 AM EDT Hypercholesterolemia Screening for metabolic disorder Encounter for lipid screening for cardiovascular disease THYROID STIMULATING HORMONE WITH REFLEX TO FREE T4 AND FREE T3 Routine 12/08/2024 10:23 AM EDT Acquired hypothyroidism MR CHEST WO AND W CONTRAST Routine 11/27/2024 3:13 PM EDT Mediastinal mass EXTERNAL CLINICAL LAB 11/05/2024 DEPRESSION SCREENING Routine 11/30/2023 FALLS RISK ASSESSMENT Routine 11/30/2023 HEPATITIS C SCREENING Routine 04/26/2022 [facility] DEXA AXIAL SKELETON Routine 11/16/2021 2:57 PM EDT Encounter for screening for osteoporosis COLONOSCOPY Routine 08/13/2020 from Last 3 Months or Most Recently Relevant to Health Maintenance Results * Thyroid stimulating hormone with reflex to free t4 and free t3 (12/08/2024 10:23 AM EDT) Pathologist [facility] TSH 2.74 0.40 - 4.00 mcIU/mL LAB CHEMISTRY METHOD 12/08/2024 3:50 PM EDT [facility] Blood Venous blood specimen / Unknown Venipuncture / Unknown 12/08/2024 10:23 AM EDT 12/08/2024 10:23 AM EDT us Helen Key NP LAB BLOOD ORDERABLES Final Resu lt [facility] [address] [place] [address], * Lipid panel with reflex to direct LDL (12/08/2024 10:23 AM EDT) Cholesterol 167 0 - 200 mg/dL LAB CHEMISTRY METHOD 12/08/2024 3:39 PM EDT [facility] Triglycerides 87 0 - 150 mg/dL LAB CHEMISTRY METHOD 12/08/2024 3:39 PM EDT [facility] HDL 72 >=40 mg/dL LAB CHEMISTRY METHOD 12/08/2024 3:39 PM EDT [facility] LDL Calculated 78 0 - 100 mg/dL LAB CHEMISTRY METHOD 12/08/2024 3:39 PM EDT [facility] Comment:Estimated LDL Calcul ated using equation: Total cholesterol - HDL cholesterol - (Triglycerides/5) VLDL Cholesterol Fritz 17.4 mg/dL LAB CHEMISTRY METHOD 12/08/2024 3:39 PM EDT [facility] Non HDL Chol. (LDL+VLDL) 95 <145 mg/dL LAB CHEMISTRY METHOD 12/08/2024 3:39 PM EDT [facility] Chol/HDL Ratio 2.3 0.0 - 4.4 LAB CHEMISTRY METHOD 12/08/2024 3:39 PM EDT [facility] Blood Venous blood specimen / Unknown Venipuncture / Unknown 12/08/2024 10:23 AM EDT 12/08/2024 10:23 AM EDT us Helen Key NP LAB BLOOD ORDERABLES Final Resu lt [facility] [address] [place] [address], * Complete blood count (12/08/2024 10:23 AM EDT) WBC 5.0 4.8 - 10.8 K/mcL LAB HEMETOLOGY METHOD 12/08/2024 12:29 PM EDT [facility] RBC 4.80 3.80 - 4.80 M/mcL LAB HEMETOLOGY METHOD 12/08/2024 12:29 PM EDT [facility] Hemoglobin 14.3 11.5 - 16.0 g/dL LAB HEMETOLOGY METHOD 12/08/2024 12:29 PM EDT [facility] Hematocrit 43.7 35.0 - 47.0 % LAB HEMETOLOGY METHOD 12/08/2024 12:29 PM EDT [facility] MCV 90.5 79.0 - 98.0 FL LAB HEMETOLOGY METHOD 12/08/2024 12:29 PM EDT [facility] MCH 29.6 27.0 - 32.0 pcg LAB HEMETOLOGY METHOD 12/08/2024 12:29 PM EDT [facility] MCHC 32.7 32.0 - 37.0 g/dL LAB HEMETOLOGY METHOD 12/08/2024 12:29 PM EDT [facility] RDW 12.2 11.0 - 15.0 % LAB HEMETOLOGY METHOD 12/08/2024 12:29 PM EDT [facility] Platelets 226 130 - 400 K/mcL LAB HEMETOLOGY METHOD 12/08/2024 12:29 PM EDT [facility] MPV 9.4 7.0 - 11.0 FL LAB HEMETOLOGY METHOD [facility] NRBC 0.0 <1.0 % LAB HEMETOLOGY METHOD 12/08/2024 12:29 PM EDT [facility] NRBC Absolute 0.00 <0.10 K/mcL LAB HEMETOLOGY METHOD 12/08/2024 12:29 PM T [facility] Blood Venous blood specimen / Unknown Venipuncture / Unknown 12/08/2024 10:23 AM EDT 12/08/2024 10:23 AM EDT us Helen Key NP LAB BLOOD ORDERABLES Final Resu lt [facility] [address] [place] [address], [place] [phone] * (ABNORMAL) Comprehensive metabolic panel (12/08/2024 10:23 AM EDT) Sodium 141 133 - 145 mmol/L LAB CHEMISTRY METHOD 12/08/2024 3:39 PM [facility] Potassium 4.1 3.5 - 5.5 mmol/L LAB CHEMISTRY METHOD 12/08/2024 3:39 PM [facility] Chloride 108 96 - 110 mmol/L LAB CHEMISTRY METHOD 12/08/2024 3:39 PM [facility] CO2 27 21 - 32 mmol/L LAB CHEMISTRY METHOD 12/08/2024 3:39 PM [facility] Anion Gap 6 3 - 11 LAB CHEMISTRY METHOD 12/08/2024 3:39 PM [facility] Glucose 91 70 - 100 mg/dL LAB CHEMISTRY METHOD 12/08/2024 3:39 PM [facility] BUN 13 5 - 25 mg/dL LAB CHEMISTRY METHOD 12/08/2024 3:39 PM [facility] Creatinine 0.61 0.50 - 1.10 mg/dL LAB CHEMISTRY METHOD 12/08/2024 3:39 PM [facility] eGFR 95 >=60 mL/min/1. 73m2 LAB CHEMISTRY METHOD 12/08/2024 3:39 PM [facility] Comment:Calculation based on the Chronic Kidney Disease Epidemiology Collaboration (CKD-EPI) equation refit without adjustment for race. BUN/Creatinine Ratio 21.3 LAB CHEMISTRY METHOD 12/08/2024 3:39 PM [facility] Calcium 9.7 8.5 - 10.5 mg/dL LAB CHEMISTRY METHOD 12/08/2024 3:39 PM [facility] AST (SGOT) 21 10 - 42 unit/L LAB CHEMISTRY METHOD 12/08/2024 3:39 PM [facility] ALT (SGPT) 25 10 - 60 unit/L LAB CHEMISTRY METHOD 12/08/2024 3:39 PM EDT [facility] Alkaline Phosphatase 96 42 - 121 unit/L LAB CHEMISTRY METHOD 12/08/2024 3:39 PM EDT [facility] Total Protein 6.5 6.0 - 8.0 g/dL LAB CHEMISTRY METHOD 12/08/2024 3:39 PM EDT [facility] Albumin 3.9 3.2 - 5.0 g/dL LAB CHEMISTRY METHOD 12/08/2024 3:39 PM EDT [facility] Total Bilirubin 1.6(H) 0.0 - 1.4 mg/dL LAB CHEMISTRY METHOD 12/08/2024 3:39 PM EDT [facility] Blood Venous blood specimen / Unknown Venipuncture / Unknown 12/08/2024 10:23 AM EDT 12/08/2024 10:23 AM EDT us Hleen Key NP LAB BLOOD ORDERABLES Final Resu lt [facility] [address] [place] [address], * MR Chest wo and w Contrast (11/27/2024 3:13 PM EDT) Anatomical Region Laterality Modality Chest, Body Magnetic Resonan ce 11/27/2024 3:21 PM EDT Impressions 11/27/2024 4:59 PM EDT 1. There is a sharply circumscribed nonenhancing cystic mass in the right upper mediastinum. This is unchanged since at least 2020. This is likely a benign cystic lesion. This has increased when compared to 2019. 2. There is abnormal signal in the visualized lung apices. There was abnormality in this area on CT. CT is better able to characterize these findings. There is some volume loss with enhancement in the inferior lingula and there is some reticulation with enhancement associated with the pleura of the anterior left chest wall. This could reflect postradiation change. 3. There is a focal lesion in the left side of the upper thoracic spine. This is unchanged since at least 2020. This is likely a benign lesion. -------- FINAL REPORT -------- Dictated By: Nazario Hensley Dictated Date: 11/27/2024 15:21 ET Assigned Physician: Nazario Hensley Reviewed and Electronically Signed By: Nazario Hensley Signed Date: 11/27/2024 16:59 ET Workstation ID: [id number] Transcribed By: Self Edit Transcribed Date: 11/27/2024 15:25 ET Narrative 11/27/2024 4:59 PM EDT EXAMINATION: MR CHEST WITHOUT AND WITH CONTRAST CLINICAL INFORMATION: Mediastinal mass. Previous report indicates history of left breast cancer post lumpectomy. History of sarcoidosis. COMPARISON: Selected portions of PET CT thyroid 03/17/[address] of [address] 10/31/24 TECHNIQUE: Anatomic and fluid sensitive MR sequences were obtained on a 3 Araseli platform to examine the chest. Coronal, parasagittal and axial sequences obtained. Imaging before and after the IV administration of contrast. Amount of IV contrast: 15 mL Type of contrast: Dotarem Volume of contrast discarded: 0 mL FINDINGS: MEDIASTINUM: There is a sharply circumscribed homogeneous T2 intense right upper mediastinal mass insinuating between the anterior right side of the trachea and the right side of the innominate artery. This is deep to the right brachiocephalic vein. There is no perceptible wall or enhancement. No thick septation. No surrounding stranding. No convincing imaging evidence of vascular invasion. This does not appear to arise from the esophagus. 11/27/24-3.9 x 3.3 cm 10/31/24-3.9 x 3.3 cm 03/06/24-3.7 x 3.1 cm 05/08/19-2.3 x 1.4 cm There are no other suspicious mediastinal masses. CARDIAC: The heart is not enlarged. No pericardial fluid or thickening LUNG: There is abnormal signal in the visualized lung apices. There was abnormality in this area on CT. CT is better able to characterize these findings. There is some volume loss with enhancement in the inferior lingula and there is some reticulation with enhancement associated with the pleura of the anterior left chest wall. This could reflect postradiation change. No large pulmonary mass demonstrated VASCULAR: There is no thoracic aortic aneurysm. The main pulmonary artery is normal caliber PLEURAL: No significant pleural fluid. AXILLA/CHEST WALL: There is skin thickening and there is reticulation in the left breast and chest wall which is likely related to treatment for previous left breast cancer. There are no measurably enlarged axillary lymph nodes demonstrated. VISUALIZED UPPER ABDOMEN: No suspicious abnormality on limited assessment of the visualized upper abdomen. Suspect a cyst in the upper left kidney. MUSCULOSKELETAL: There is a focal lesion in the left side of the upper thoracic spine. This is unchanged since at least 05/08/19. There is some enhancement. Procedure Note Nazario Hensley MD - 11/27/2024 EXAMINATION: MR CHEST WITHOUT AND WITH CONTRAST CLINICAL INFORMATION: Mediastinal mass. Previous report indicates history of left breast cancerpost lumpectomy. History of sarcoidosis. COMPARISON: Selected portions of PET CT thyroid 03/17/24 and portions of chest CT10/31/24 TECHNIQUE: Anatomic and fluid sensitive MR sequences were obtained on a 3 Teslaplatform to examine the chest. Coronal, parasagittal and axial sequences obtained. Imaging before and after the IV administration of contrast. Amount of IV contrast: 15 mL Type of contrast: Dotarem Volume of contrast discarded: 0 mL FINDINGS: MEDIASTINUM: There is a sharply circumscribed homogeneous T2 intenseright upper mediastinal mass insinuating between the anterior right sideof the trachea and the right side of the innominate artery. This is deepto the right brachiocephalic vein. There is no perceptible wall orenhancement. No thick septation. No surrounding stranding. No convincingimaging evidence of vascular invasion. This does not appear to arise fromthe esophagus. 11/27/24-3.9 x 3.3 cm 10/31/24-3.9 x 3.3 cm 03/06/24-3.7 x 3.1 cm 05/08/19-2.3 x 1.4 cm There are no other suspicious mediastinal masses. CARDIAC: The heart is not enlarged. No pericardial fluid or thickening LUNG: There is abnormal signal in the visualized lung apices. There wasabnormality in this area on CT. CT is better able to characterize thesefindings. There is some volume loss with enhancement in the inferiorlingula and there is some reticulation with enhancement associated withthe pleura of the anterior left chest wall. This could reflectpostradiation change. No large pulmonary mass demonstrated VASCULAR: There is no thoracic aortic aneurysm. The main pulmonary arteryis normal caliber PLEURAL: No significant pleural fluid. AXILLA/CHEST WALL: There is skin thickening and there is reticulation inthe left breast and chest wall which is likely related to treatment forprevious left breast cancer. There are no measurably enlarged axillarylymph nodes demonstrated. VISUALIZED UPPER ABDOMEN: No suspicious abnormality on limited assessmentof the visualized upper abdomen. Suspect a cyst in the upper leftkidney. MUSCULOSKELETAL: There is a focal lesion in the left side of the upperthoracic spine. This is unchanged since at least 05/08/19. There is someenhancement. IMPRESSION: 1. There is a sharply circumscribed nonenhancing cystic mass in the rightupper mediastinum. This is unchanged since at least 2020. This is likely abenign cystic lesion. This has increased when compared to 2019. 2. There is abnormal signal in the visualized lung apices. There wasabnormality in this area on CT. CT is better able to characterize thesefindings. There is some volume loss with enhancement in the inferiorlingula and there is some reticulation with enhancement associated withthe pleura of the anterior left chest wall. This could reflectpostradiation change. 3. There is a focal lesion in the left side of the upper thoracic spine.This is unchanged since at least 2020. This is likely a benign lesion. -------- FINAL REPORT -------- Dictated By: Nazario Hensley Dictated Date: 11/27/2024 15:21 ET Assigned Physician: Nazario Hensley Reviewed and Electronically Signed By: Nazario Hensley Signed Date: 11/27/2024 16:59 ET Workstation ID: [id number] Transcribed By: Self Edit Transcribed Date: 11/27/2024 15:25 ET Maxine Smith MD IM MRI PROCEDURES Final Result * External clinical lab (11/05/2024) Provider Anita Onbase LAB BLOOD ORDERABLES Fin al Result * Falls Risk Assessment (11/30/2023) Pathologist [facility] Risk Assessment abstracted Historical Provider HEALTH MAINTENANCE Final Result * Depression Screening (11/30/2023) Pathologist [facility] Depression Screening abstracted [facility] Provider HEALTH MAINTENANCE Final Result * Hepatitis C Screening (04/26/2022) Pathologist [facility] Hepatitis C Screening negative Historical Provider HEALTH MAINTENANCE Final Result * [facility] DEXA AXIAL SKELETON (11/16/2021 2:57 PM EDT) Anatomical Region Laterality Modality Mammography 11/16/2021 10:3 8 AM EDT Narrative 11/16/2021 2:57 PM EDT [facility] Diagnostic Imaging Department [address] [place] [address] Patient: TOMMYJOCELYNE D.O.B./Age/Sex: 1950 - 71 - F Unit#: [id number] Location/Status: [facility]/REG CLI Mnemonic/Ordering Site: MAMDEXAAX/SPMAM Ordering Physician: HEATHER SOSA MD [facility] Dexa Axial Skeleton - 11/16/21 - 2212 HISTORY: The [age]year[age]old postmenopausal [...] probability of hip fracture of 4.8%. Code 50388 Dictating Physician: CECE GARRETT MD Electronically Signed by: CECE GARRETT MD Dic Date/Time: 11/16/21 1449 Sign date/Time: 11/16/21 1457 Procedure Note Jahaira Garrett MD - 02/15/2022 [facility] Diagnostic Imaging Department [address] [place] [address] Patient: TOMMYJOCELYNE D.O.B./Age/Sex: 1950 - 71 - F Unit#: [id number] Location/Status: [facility]/REG I Mnemonic/Ordering Site: MAMDEXAAX/SPMAM Ordering Physician: HEATHER SOSA MD [facility] Dexa Axial Skeleton - 11/16/21 - 111 HISTORY: The [age] is a [age]-year-old postmenopausal [...] probability of hip fracture of 4.8%. 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
--- OUTSIDE RECORDS SUMMARY | 2024-12-25 09:56 | XMS_ITS | Encounter Summary ---
Author Organization [facility] [place] [address] Care Team Providers Care Wardrobe Technician Name Role Phone Helen Key NP Primary Care Provider [phone] Encounter Details Date Type Department Care Team (Late st Contact Info) Description 12/08/2024 Results Follow-Up Internal Medicine - [facility] [address] [facility] [id number] [place]ah [place] Social History Tobacco Use Types Packs/Day Years [...] Record ed Within the last 3 months, [place]te [place] many times did you visit the emergency [...] care for your loved ones. For example, child welfare worker or elderly care for an older adult? [...] on file Sexual Orientation Not on file documented as of this encounter Progress Notes * Helen Key NP - 12/09/2024 12:11 PM EDT My chart message sent. documented in this encounter Plan of Treatment Upcoming Encounters Date Type Department Care Team (Late st Contact Info) Description 06/02/2025 10:15 AM EDT Office Visit Internal Medicine - [facility] [address] [place] [address] Helen Key NP [address] [place] [address] documented as of this encounter Visit Diagnoses Not on filedocumented in this encounter Additional Health Concerns Assessment Noted Time PHQ-9 Depression Total Score: 5 12/02/19 25 4:04 PM EDT documented as of this encounter Care Teams Wardrobe Technician Relationship Specialty Start Date End Date Helen Key NP [address] [place] [address] PCP - General 04/14/22 documented as of this encounter
== END ==
LOC: HO.CARD 08:55
PROVIDERS: PCP Nurse Practitioner Primary Care; Visit Provider Hospitalist
DX: I27.20 Pulmonary hypertension, unspecified (principal)
CPT/HCPCS: 93306; Q9957

== ENCOUNTER → 2024-12-25 08:57 | Outpatient (BNV) | payer MEDICARE, SELFPAY | PROVIDERS: PCP Nurse Practitioner Primary Care; Visit Provider Internal Medicine | DX: I27.20 Pulmonary hypertension, unspecified (principal) | CPT/HCPCS: 93306 ==